=== PATIENT | female | born 1995 | race Hispanic/Latino ===

== ENCOUNTER 2017-08-07 16:29 | Inpatient (IN) | payer OTHER ==
[~2017-08-07 16:29] MED LIST: Bupivacaine 0.25% HCL 30 ML VIAL ONE
[2017-08-07 17:02] VITALS: BMI 35.8
[2017-08-07] MEDS ORDERED: Labetalol HCl 100 MG/20 ML VIAL ONE (18:10)
--- NOTE | 2017-08-07 18:18 | PDOC.LDHP ---
Labor and Delivery H&P Chief complaint: other (@ term, elevated bp's sent from clinic) HPI: 22 yo @ 37.1 by 1st tri us with complicated by gestational htn presents after being sent from clinic for elevated BP. She denies being on any medications for gestational htn. Pt reports headache, no vision changes. Denies cp, sob, RUQ pain. Denies loss of vaginal fluid, painful contractions. Pt was late to care started with clinic care at 35 weeks gestation. Current gestational age (weeks): 37 Due date: 09/06/17 Dating criteria: last menstrual period, first trimester ultrasound Grav: 4 Para: 3 OB History Details: Late to care gestational htn @ 37.1 A+, RPR, rubella neg, HIV neg, HpBsAg neg, GBS neg, UDS neg Current complications: preeclampsia with severe features Abnormal US findings: No Past Medical History: None Social history: none - Physical Exam General: NAD Heart: RRR Lungs: nonlabored breathing Abdomen: NTTP Extremeties: trace edema FHT: category 1, variability present [place] contractions every: absent - Vaginal Exam cm dilated: 1 Effacement: 75% Station: -3 - OB Labs Blood type: A RH: positive HIV: negative RPR: negative HEPSAg: negative GBS: negative Urine drug screen: negative - Assessment L&D Assessment: medically indicated induction - Plan Plan: admit to L&D, cervical ripening, labor augmentation if indicated, magnesium for neuroprotection, magnesium for seizure prophylaxis -: preeclampsia w/ severe mag for seizure prophylaxis cbc, cmp, Hgb A1c, urine protein/creatinine ratio foster 4, cytotec induction mag check q4hr, dtr q1hr lr @125 will monitor <Ray Santana - Last Filed: 08/07/17 18:12> <Sandra Rodrigez - Last Filed: 08/08/17 00:39> Allergies/Adverse Reactions: Allergies Allergy/AdvReac Type Severity Reaction Status Date / Time No Known Allergies Allergy Verified 07/12/17 22:57 Attending Addendum - Attending Addendum I personally evaluated the patient and discussed the management with Dr. Santana I agree with the History, Examination, Assessment and Plan documented above with any addition or exceptions noted below. 22 yo female at 37.1 wks by "reported" 1st trimester sono at [facility] sent for IOL. 1. sIUP: IOB labs reviewed and performed at hospital. Limited anatomy reviewed from previous hospital stay. Reports anatomy survey at [facility]. Received Flu and Tdap this . Did not perform 1 hour gtt. All fasting blood glucose has been WNL. Vertex and confirmed by sono. EFW = 7.5 lbs. FHT cat 1. GBS negative. No prior GC/CT testing -- ordered this stay and results pending. 2. Incomplete care: Will request records from [facility] and [facility] in AM. 3. Preeclampsia with severe features: Criteria by severe range pressure x2 on bed rest with persistent DUNCAN despite Tylenol. Labs WNL. No evidence of proteinuria. Previously dx with gHTN. BPP from earlier today 05/27. Will start mag. Fsoter of 4 and contractions irregular. Will start with miso for cervical ripening. 4. Hx of marijuana use: UDS negative x3. 5. Hx of macrosomic infant: Sono at 33.4 wks 81%tile. Sono consistent with previous dating. 6. Rubella nonimmune: Needs MMR pp. Proceed with admission. Start mag. BP severe range treated x1. WillMD <Sandra Rodrigez - Last Filed: 08/08/17 00:39>
[2017-08-07] MEDS ORDERED: LR / Pitocin 40 units/1000 ml 1,000 ML IV PRN (19:01)
[2017-08-07] MEDS ORDERED: Promethazine HCl 25 MG/ML VIAL IM PRN (19:01)
[2017-08-07] MEDS ORDERED: Lidocaine 1% (PF) 30 ML VIAL SC PRN (19:01)
[2017-08-07] MEDS ORDERED: Calcium Gluc 4.6 MEQ/10 ML (100 MG/ML) SLOW IVP PRN ×2 (19:01)
[2017-08-07] MEDS ORDERED: Magnesium Sulfate 20 GM/WATER 500 ML BAG IVPB SCH (19:01)
[2017-08-07] MEDS ORDERED: Labetalol HCl 100 MG/20 ML VIAL SLOW IVP PRN (19:01)
[2017-08-07] MEDS ORDERED: Ondansetron HCl/PF 4 MG/2 ML Vial IVP PRN (19:01)
[2017-08-07 19:09] LABS: Hematocrit 33.6 % (36.0-47.0); Mean Platelet Volume 7.6 fL (7.4-10.4); Red Blood Cell (RBC) Count 3.88 mill/uL (4.20-5.40); White Blood Cell (WBC) Count 10.8 thou/uL (4.8-10.8)
[2017-08-07 19:20] LABS: ALT (SGPT) 14 U/L (8-55); AST (SGOT) 15 U/L (5-34); Alkaline Phosphatase 208 U/L (40-150); Anion Gap 14 mmol/L (10-20); BUN (Urea Nitrogen) 8 mg/dL (7.0-18.7); Bilirubin, Total 0.3 mg/dL (0.2-1.2); Calc. Creatinine Clearance 234 mL/min (70-130); Carbon Dioxide 21 mmol/L (22-29); Chloride 105 mmol/L (98-107); Estimated GFR-MDRD Greater than 90; Globulin 3.6 g/dL (2.4-3.5); Protein, Total 6.9 g/dL (6.0-8.3)
[2017-08-07 19:23] LABS: Hemoglobin A1c 5.4 % (4.0-6.0)
[2017-08-07] MEDS: Lactated Ringer's 1,000 ML IV SCH (19:25)
[2017-08-07] MEDS ORDERED: Acetaminophen 325 MG TAB PO PRN (19:44)
[2017-08-07] MEDS: Magnesium Sulfate 20 gm/500 ml 20 GM/500 ML BAG IVPB SCH (19:52)
--- NOTE | 2017-08-07 20:53 | ULT ---
ULTRASOUND BIOPHYSICAL PROFILE WITH PROFILE: HISTORY: Preeclampsia. FINDINGS: A single live intrauterine gestation is seen with a heart rate of 135 beats per minute. ROGERS m easures 12.2 cm. The placenta is posteriorly located without evidence of placenta previa. po sition is vertex. OB BIOPHYSICAL PROFILE: TONE: 2 BREATHIN MOVEMENTS: 2 AMNIOTIC FLUID: 2 IMPRESSION: Ultrasound biophysical profile score is 8/8. POS: [facility]
[2017-08-07] MEDS ORDERED: Misoprostol 100 MCG TAB VAG SCH (21:00)
[2017-08-07] MEDS: LR 500 ML/Oxytocin 10 units 500 ML IV SCH (22:27)
--- NOTE | 2017-08-07 22:59 | PDOC.LDPN ---
Labor & Delivery Progress Note - Subjective Subjective: comfortable, painful contractions - Objective Vital signs reviewed and normal: yes General: NAD, breathing through contractions Uterine fundus: non tender FHT: category 1, variability present [place] contractions every: 4-6 min - Assessment (1) Pre-eclampsia, severe Code(s): O14.10 - SEVERE PRE-ECLAMPSIA, UNSPECIFIED TRIMESTER Current Visit: Yes Status: Acute Comment: 22yo @ 37.1 by 1st trimester US Continue Mg Continue Pitocin Epidural for pain control Next cervical check at 0200 Next Mg check at 0300 -Patient is not hyperreflexic, does complain of a headache, no peripheral edema , no RUQ pain Plan: continue plan of care, pitocin for augmentation <Nikolas Jasso - Last Filed: 08/07/17 22:57> Attending Addendum - Attending Addendum I personally evaluated the patient and discussed the management with Dr. Jasso I agree with the History, Examination, Assessment and Plan documented above with any addition or exceptions noted below. 22 yo female at 37.1 wks by "reported" 1st trimester sono at [facility] sent for IOL. 1. sIUP: IOB labs reviewed and performed at hospital. Limited anatomy reviewed from previous hospital stay. Reports anatomy survey at [facility]. Received Flu and Tdap this . Did not perform 1 hour gtt. All fasting blood glucose has been WNL. Vertex and confirmed by sono. EFW = 7.5 lbs. FHT cat 1. GBS negative. No prior GC/CT testing -- ordered this stay and results pending. 2. Incomplete care: Will request records from [facility] and [facility] in AM. 3. Preeclampsia with severe features: Criteria by severe range pressure x2 on bed rest with persistent DUNCAN despite Tylenol. Labs WNL. No evidence of proteinuria. Previously dx with gHTN. BPP from earlier today 05/27. On mag for seizure ppx. Initially unfavorable cervix but once transferred to room now with favorable cervix, will proceed with pitocin. 4. Hx of marijuana use: UDS negative x3. 5. Hx of macrosomic infant: Sono at 33.4 wks 81%tile. Sono consistent with previous dating. 6. Rubella nonimmune: Needs MMR pp. Continue mag. BP stable and normotensive. Still with headache. Will increase dose of Tylenol. Continue pit. Repeat SVE prn and in 4 hours. Will consider AROM at that time. Considering Epidural for pain control. Zuleyma <Sandra Rodrigez - Last Filed: 08/08/17 00:43>
[2017-08-08] MEDS ORDERED: Acetaminophen 325 MG TAB PO SCH (00:01)
[2017-08-08] MEDS ORDERED: Naloxone HCl 0.4 mg/ml Vial IVP PRN ×2 (00:05)
[2017-08-08] MEDS ORDERED: Ondansetron HCl/PF 4 MG/2 ML Vial IVP PRN (00:05)
[2017-08-08] MEDS ORDERED: Eucerin (Mineral Oil/Petrolatum,White) 30 gm Jar TOP PRN (00:05)
[2017-08-08] MEDS ORDERED: Acetaminophen 325 MG TAB PO PRN (00:05)
[2017-08-08] MEDS ORDERED: ePHEDrine/0.9% NaCl/PF SYRINGE 50 mg/10 ml SLOW IVP PRN (00:05)
[2017-08-08] MEDS ORDERED: Lactated Ringer's 500 ML IV PRN (00:05)
[2017-08-08] MEDS ORDERED: diphenhydrAMINE 50 MG/ML VIAL IVP PRN (00:05)
[2017-08-08] MEDS ORDERED: Promethazine HCl 25 MG/ML VIAL IM PRN (00:05)
[2017-08-08] MEDS ORDERED: Communication Order-Pharmacy FS SCH (00:15)
[2017-08-08] MEDS ORDERED: Fentanyl 4mcg/Marcaine 0.1% Cassette 100 ML EPIDURAL SCH (00:15)
--- NOTE | 2017-08-08 02:04 | PDOC.LDPN ---
Addendum entered and electronically signed by Nikolas Jasso MD 08/08/17 02: 05: Patient's urine output is 150ml/hr Original Note: Labor & Delivery Progress Note - Subjective Subjective: painful contractions - Objective Vital signs reviewed and normal: yes General: NAD Uterine fundus: non tender Dilation: 5cm Effacement: 90% Station: -1 FHT: category 1 [place] contractions every: 4-6 min - Assessment (1) Pre-eclampsia, severe Code(s): O14.10 - SEVERE PRE-ECLAMPSIA, UNSPECIFIED TRIMESTER Current Visit: Yes Status: Acute Comment: 22yo @ 37.1 by 1st trimester US Continue Mg Continue Pitocin Epidural for pain control / @ 0200 -DTR 2+ does complain of a headache, no peripheral edema, no RUQ pain Plan: continue plan of care, pitocin for augmentation <Nikolas Jasso - Last Filed: 08/08/17 02:02> Attending Addendum - Attending Addendum I personally evaluated the patient and discussed the management with Dr. Jasso I agree with the History, Examination, Assessment and Plan documented above with any addition or exceptions noted below. 22 yo female at 37.2 wks by "reported" 1st trimester sono at [facility] sent for IOL. 1. sIUP: IOB labs reviewed and performed at hospital. Limited anatomy reviewed from previous hospital stay. Reports anatomy survey at [facility]. Received Flu and Tdap this . Did not perform 1 hour gtt. All fasting blood glucose has been WNL. Vertex and confirmed by sono. EFW = 7.5 lbs. FHT cat 1. GBS negative. No prior GC/CT testing -- ordered this stay and results pending. 2. Incomplete care: Will request records from [facility] and [facility] in AM. 3. Preeclampsia with severe features: Criteria by severe range pressure x2 on bed rest with persistent DUNCAN despite Tylenol. Labs WNL. No evidence of proteinuria. Previously dx with gHTN. BPP from earlier today 05/27. On mag for seizure ppx. On pitocin. 4. Hx of marijuana use: UDS negative x3. 5. Hx of macrosomic infant: Sono at 33.4 wks 81%tile. Sono consistent with previous dating. 6. Rubella nonimmune: Needs MMR pp. Continue mag. Pitocin for augmentation. Will AROM and place IUPC. Headache improved. BP stable. Zuleyma <Sandra Rodrigez - Last Filed: 08/08/17 09:11>
--- NOTE | 2017-08-08 02:50 | PDOC.EVN ---
Event Note - Event Note Event Note: AROM @ 0245 Clear fluid present IUPC placed. <Nikolas Jasso - Last Filed: 08/08/17 02:49> Attending Addendum - Attending Addendum I personally evaluated the patient and discussed the management with Dr. Jasso I agree with the History, Examination, Assessment and Plan documented above with any addition or exceptions noted below. WillMD <Sandra Rodrigez - Last Filed: 08/08/17 09:12>
[2017-08-08] MEDS ORDERED: Misoprostol 200 MCG TAB ONE (05:07)
--- NOTE | 2017-08-08 05:50 | PDOC.PP ---
Post Progress Note Post Day #: 0 Weight Weight 88.904 kg Last BP 148/86 - Physical Examination General: NAD Cardiovascular: no m/r/g, RRR Respiratory: clear to ausculation bilateral Abdominal: + bowel sounds, lochia, appropriately TTP Extremities: negative homans (B) Skin: no rash Neurological: no gross focal deficits Psychiatric: normal affect Result Diagrams: 08/07/17 17:30 08/07/17 17:30 Additional Labs: Post Labs Hep Bs Antigen Non-Reactive S/CO (NonReactive) 08/07/17 17:30 (1) Pre-eclampsia, severe Code(s): O14.10 - SEVERE PRE-ECLAMPSIA, UNSPECIFIED TRIMESTER Status: Acute Comment: 22yo @ 37.2 by 1st trimester US delivered via TAGA male APGARs 9 & 9 @ 04:56 on 08/08/17 Continue Mg -More reflexive than on previous exams. -Complains of worsening headaches. -Having BPs with systolic as high as 150s, will continue to monitor -no peripheral edema, no RUQ pain -Will check Mg level <Nikolas Jasso - Last Filed: 08/08/17 05:48> Vital Signs (12 hours) Temp Pulse Resp BP 08/08/17 09:14 100 08/08/17 07:42 98.3 F 100 18 134/93 H Weight Weight 88.904 kg Result Diagrams: 08/07/17 17:30 08/07/17 17:30 Additional Labs: Post Labs Hep Bs Antigen Non-Reactive S/CO (NonReactive) 08/07/17 17:30 <Sandra Rodrigez - Last Filed: 08/08/17 09:39> Attending Addendum - Attending Addendum I personally evaluated the patient and discussed the management with Dr. Jasso I agree with the History, Examination, Assessment and Plan documented above with any addition or exceptions noted below. 22 yo female s/p at 37.2 wks on 08/08/17. 1. PPD#0: Follow up on medical records. Continue routine pp care. Discuss contraception. Breast feeding. Lochia appropriate. 2. Incomplete care: Will request records from [facility] and [facility] in AM. 3. Preeclampsia with severe features: Criteria by severe range pressure x2 ( treated) on bed rest with persistent DUNCAN despite Tylenol. Labs WNL. No evidence of proteinuria. Previously dx with gHTN. On mag for seizure ppx. Low risk for seizure will allow for full liquid diet. NO NSAIDS! UOP 400 to 500 ml/hr. 4. Hx of marijuana use: UDS negative x3. 5. Rubella nonimmune: Needs MMR pp. Continue mag for at least 24 hours. BP stable. Zuleyma <Sandra Rodrigez - Last Filed: 08/08/17 09:39>
[2017-08-08] MEDS ORDERED: HYDROcodone/Acetaminophen 5/325 mg Tablet PO SCH (06:35)
--- NOTE | 2017-08-08 06:41 | DN-2 ---
DATE OF DELIVERY: 08/08/2017 DELIVERING PHYSICIAN: Meghann Abebe D.O., Lazara Gage M.D. ATTENDING PHYSICIAN: Dr. Sandra Rodrigez PROCEDURE: Spontaneous vaginal delivery. ANESTHESIA: Epidural. ESTIMATED BLOOD LOSS: 350 mL. POSTOPERATIVE DIAGNOSES: 1. Term intrauterine in labor. 2. Preeclampsia with severe features. 3. Incomplete care. 4. History of gestational hypertension. 5. History of macrosomia. POSTOPERATIVE DIAGNOSES: 1. Term intrauterine , delivered. 2. Preeclampsia with severe features. 3. Incomplete care. 4. History of gestational hypertension. 5. History of macrosomia. INDICATIONS: A 22-year-old female G4, P3 presented for medical induction of labor due to preeclampsia with severe features. DELIVERY NOTE: This is a 22-year-old female, G4, P3 now 4 at 37 and 2 weeks who delivered a viable male at 0456. Although patient was on Mg for Preeclampsia with severe features and IV labetalol prn for elevated pressures, antepartum course was quite uneventful. Following antepartum course, a vigorous male was delivered over an intact perineum in OA position. Anterior shoulder and then remainder of body was delivered. No nuchal cord. The head was held down and mouth and nares were bulb suctioned. was placed on mom for skin to skin and delayed cord clamping for at least 1 minute was performed. Cord was clamped and cut and cord blood collected. Placenta delivered intact with a 3-vessel cord noted. Fundal massage was performed and the fundus was initially not firm. Cytotec was given and bimanual massage was performed and found to have a firm uterus. The cervix and vagina were inspected and found to be free of lacerations. Infant stayed with mom for skin to skin and . Apgars were 9 and 9 at 1 and 5 minutes, respectively. The patient tolerated delivery well and went to after routine recovery/care. Dr. Rodrigez was present for the entire delivery. [facility]
[2017-08-08] MEDS ORDERED: Bisacodyl 10 MG SUPP PR PRN (08:35)
[2017-08-08] MEDS ORDERED: LR / Pitocin 40 units/1000 ml 1,000 ML IV SCH (08:35)
[2017-08-08] MEDS ORDERED: Lanolin Ointment 7 GM TUBE TOP PRN (08:35)
[2017-08-08] MEDS ORDERED: Milk Of Magnesia 30 ML UDCUP PO PRN (08:35)
--- NOTE | 2017-08-08 08:38 | PDOC.PP ---
Post Progress Note Post Day #: 1 PO intake tolerated: yes Flatus: no Ambulation: no Weight Weight 88.904 kg - Physical Examination General: NAD Cardiovascular: no m/r/g, RRR Respiratory: clear to ausculation bilateral Abdominal: + bowel sounds, lochia, no distention, appropriately TTP Extremities: negative homans (B) Neurological: no gross focal deficits Deviation from normal: PERRLA, EOMI, reflexes 1+ Psychiatric: normal affect Result Diagrams: 08/07/17 17:30 08/07/17 17:30 Additional Labs: Post Labs Hep Bs Antigen Non-Reactive S/CO (NonReactive) 08/07/17 17:30 (1) Pre-eclampsia Code(s): O14.90 - UNSPECIFIED PRE-ECLAMPSIA, UNSPECIFIED TRIMESTER Status: Acute (2) Pre-eclampsia, severe Code(s): O14.10 - SEVERE PRE-ECLAMPSIA, UNSPECIFIED TRIMESTER Status: Acute - Assessment/Plan 22yo @ 37.2 by 1st trimester US delivered via TAGA male APGARs 9 & 9 @ 04:56 on 08/08/17 Continue Mg -Reflexes 1+ currently, will check mag level and continue q1hr DTR, mag check q4hr -Complains of worsening headaches, denies changes of vision, no RUQ pain, pt currently not hyperreflexive, will recheck in 4 hrs -Highest BP this AM 140s systolic, latest 119/70s william, will continue to monitor -maintaining UO approx 350mL/hr, continue to monitor is/os -Notify physician of worsening reflexes or bp > 160/110 <Ray Santana - Last Filed: 08/08/17 08:35> Vital Signs (12 hours) Temp Pulse Resp BP 08/08/17 12:00 98.5 F 100 20 08/08/17 09:14 100 08/08/17 07:42 98.3 F 100 18 134/93 H Weight Weight 88.904 kg Result Diagrams: 08/07/17 17:30 08/07/17 17:30 Additional Labs: Post Labs Hep Bs Antigen Non-Reactive S/CO (NonReactive) 08/07/17 17:30 <Guanako Sepulveda - Last Filed: 08/08/17 12:50> Attending Addendum - Attending Addendum I personally evaluated the patient and discussed the management with Dr. Santana. I agree with the History, Examination, Assessment and Plan documented above with any addition or exceptions noted below. Stable BP. No severe symptoms. + back pain, feels where epidural was. Will d/ w Anesthesia. 24h mag , then d/c. <Guanako Sepulveda - Last Filed: 08/08/17 12:50>
[2017-08-08] MEDS ORDERED: Ibuprofen 800 MG TAB PO SCH ×2 (09:00→14:00)
[2017-08-08] MEDS: Lactated Ringer's 1,000 ML IV SCH ×2 (09:14→11:12)
[2017-08-08] MEDS: Ferrous Sulfate 325 MG TAB PO SCH ×2 (09:14→18:39)
[2017-08-08] MEDS ORDERED: HYDROcodone/Acetaminophen 5/325 mg Tablet PO PRN (09:14)
[2017-08-08] MEDS: Prenatal Vitamin 1 TAB PO SCH (10:31)
[2017-08-08] MEDS: Docusate (Surfak) 240 MG CAP PO SCH (10:32)
[2017-08-08] MEDS: Docusate 100 MG CAP PO SCH ×2 (11:12→22:04)
[2017-08-08] MEDS ORDERED: Measles/Mumps/Rubella 10 MCG/0.5 ML VIAL SC ONE (12:00)
[2017-08-08] MEDS ORDERED: Adacel (T-DAP) 0.5 ML VIAL IM ONE (12:00)
--- NOTE | 2017-08-08 12:43 | PDOC.EVN ---
Event Note - Event Note Event Note: S: Patient only complaining of low back pain, worse on the L side and where epidural placed. Laying on her L side helps allieviate pain. However, pain is 10 /10 when on back. Moving legs worsen pain. No numbness, tingling, weakness. DUNCAN resolved. Denies any vision changes, CP, SOB, RUQ pain. Denies any urinary symptoms. O: VS: 121/75, HR 107, R 22, T - Gen: Appears uncomfortable, AOX4. Non-toxic appearing. CV: RRR, no murmurs. Resp: CTA bilaterally Abd: Soft, no RUQ pain, uterus below umbilicus. Neuro: Reflexes +2 symmetric. +5/5 strength LE symmetric bilaterally, Normal sensation LE bilaterally. Musculoskeletal: L sided pain around epidural site more on Left side. Equivocal CVA tenderness. A/P: 1) Pre-Eclampsia with severe features - On Mag. Doing well. Neuro check WNL. Urine Output 100-400cc/hr. BP controlled. Headache resolved. 2) IUP - delivered via 3) LBP - Likely 2/2 Epidural. Will consult Anesthesia to have them reassess patient. UA + Culture. 4) Gest HTN - Has been diet controlled. F/u with BP, which have been stable. 5) Continue routine PP w/ Mag. Discussed with Dr. Sepulveda who agrees with assessment and plan.
--- NOTE | 2017-08-08 13:02 | PDOC.FM ---
- Subjective Subjective: Pt doing well, c/o 8/10 back pain. Otherwise no headache/vision changes/BARTOLO/ RUQ pain. Intermittent lower abdominal cramping. - Objective MAR Reviewed: Yes Vital Signs & Weight: Vital Signs (12 hours) Temp Pulse Resp BP 08/08/17 12:00 98.5 F 100 20 08/08/17 09:14 100 08/08/17 07:42 98.3 F 100 18 134/93 H Weight Weight 88.904 kg Result Diagrams: 08/07/17 17:30 08/07/17 17:30 Phys Exam - Physical Examination Respiratory: no wheezing, no rales, clear to auscultation bilateral Cardiovascular: RRR, no significant murmur Gastrointestinal: soft (appropriately tender) Neurological: non-focal, moves all 4 limbs (no clonus, DTRs 1+ bilaterally) Psychiatric: normal affect, A&O x 3 Dx/Plan (1) Pre-eclampsia, severe Code(s): O14.10 - SEVERE PRE-ECLAMPSIA, UNSPECIFIED TRIMESTER Status: Acute - Plan Plan: Continue neurochecks, seizure precautions Mag x 24 hours Strict I&Os Mg level Antihypertensives if > 160/[address] Warren.
--- NOTE | 2017-08-08 13:21 | PDOC.EVN ---
Event Note - Event Note Event Note: Discussed case with Anesthesia. They examined the patient, and feel that it is likely musculoskeletal pain. Recommend to try Flexeril and Motrin. No evidence of hematoma or other complications at this time. <Bronwyn Valles - Last Filed: 08/08/17 13:20> Attending Addendum - Attending Addendum I personally evaluated the patient and discussed the management with Dr. Valles. I agree with the History, Examination, Assessment and Plan documented above with any addition or exceptions noted below. <Guanako Sepulveda - Last Filed: 08/11/17 09:23>
[2017-08-08] MEDS: Morphine 2 MG/ML SYRINGE SLOW IVP PRN ×2 (13:29→17:50)
[2017-08-08] MEDS ORDERED: Cyclobenzaprine 10 MG TAB PO SCH (13:30)
[2017-08-08 14:19] LABS: Bilirubin Negative (Negative); Blood, Urine Trace (Negative); Glucose, Urine (Dipstick) Negative (Negative); Ketone, Urine Negative (Negative); Nitrite Negative (Negative); Protein, Urine (Dipstick) Negative (Neg-Trace); Urobilinogen 0.2 mg/dL (0.2-1.0)
[2017-08-08 14:24] LABS: Bacteria/HPF None Seen HPF (None Seen); Hyaline Casts/LPF 0-3 HYALINE CAST LPF (0-3 Hyaline); Squamous Epithelial None Seen HPF (0-3); WBC/HPF 0-3 HPF (0-3)
[2017-08-08] MEDS: Magnesium Sulfate 20 gm/500 ml 20 GM/500 ML BAG IVPB SCH (14:53)
--- NOTE | 2017-08-08 16:16 | PDOC.EVN ---
Event Note - Event Note Event Note: S: Patient doing well. DUNCAN still resolved. Still complaining of LBP, but improved with Flexeril. Denies any vision changes, BP, SOB, RUQ pain, leg pain or swelling. + Flatus O: VS: 145/88, T- 98.5, HR 95, R 18 Gen: AOx4. In no acute distress. Appears much more comfortable. CV: RRR. No murmurs Resp: CTA bilaterally Abd: Appropriately TTP with fundus firm and below umbilicus. Neuro: +2 reflexes symmetric bilaterally MS: +5/5 strength LE. Errector spinae hypertonicity. Urine Output: 400cc/hr A/P: 1) Pre-eclampsia with severe features - Continue Mag x24hrs PP. Continue Q4hr Mag checks. Currently asymptomatic other than LBP. BP well controlled. 2) TIUP s/p - Continue Routine PP Care with Pre-eclampsia. <Bronwyn Valles - Last Filed: 08/08/17 16:47> Attending Addendum - Attending Addendum I personally evaluated the patient and discussed the management with Dr. Valles. I agree with and repeated the History, Examination, Assessment and Plan documented above with any addition or exceptions noted below. <Guanako Sepulveda - Last Filed: 08/11/17 09:33>
[2017-08-08] MEDS: HYDROcodone/Acetaminophen 5/325 mg Tablet PO PRN (20:22)
--- NOTE | 2017-08-08 21:40 | PDOC.EVN ---
Event Note - Event Note Event Note: S: Patient doing well. No longer complaining of Headache. Low Back pain treated with Flexeril. Denies vision changes, RUQ pain, SOB, lower extremity swelling. She states she is tolerating PO, having flatus, and was up walking around earlier. She is just wanting another dose of flexeril. O: VS: WNL Gen: AOx4. In no acute distress. Appears much more comfortable. CV: RRR. No murmurs Resp: CTA bilaterally Abd: Appropriately TTP with fundus firm and below umbilicus. Neuro: +2 reflexes symmetric bilaterally MS: +5/5 strength LE. Errector spinae hypertonicity. Urine Output: 400cc/hr A/P: 1) Pre-eclampsia with severe features - Continue Mag x24hrs PP. Continue Q4hr Mag checks. Currently asymptomatic other than LBP. BP well controlled. 2) TIUP s/p - Continue Routine PP Care with Pre-eclampsia.
[2017-08-08] MEDS: Cyclobenzaprine 10 MG TAB PO PRN (22:04)
[2017-08-09] MEDS: Lactated Ringer's 1,000 ML IV SCH (00:54)
[2017-08-09] MEDS: Magnesium Sulfate 20 gm/500 ml 20 GM/500 ML BAG IVPB SCH (00:55)
--- NOTE | 2017-08-09 01:19 | PDOC.EVN ---
Event Note - Event Note Event Note: S: Patient doing well. She states that she gets a headache when she wakes up. Low Back pain improved with Flexeril. Denies vision changes, RUQ pain, SOB, lower extremity swelling. She states she is tolerating PO and having flatus. O: VS: BP running 150s/80s asymptomatic otherwise WNL Gen: AOx4. In no acute distress. Appears much more comfortable. CV: RRR. No murmurs Resp: CTA bilaterally Abd: Appropriately TTP with fundus firm and below umbilicus. Neuro: +2 reflexes symmetric bilaterally MS: +5/5 strength LE. Errector spinae hypertonicity. Urine Output: 200cc/hr A/P: 1) Pre-eclampsia with severe features - Continue Mag x24hrs PP. Continue Q4hr Mag checks. Currently asymptomatic other than LBP. PRNs available for elevated BP 2) TIUP s/p - Continue Routine PP Care with Pre-eclampsia.
--- NOTE | 2017-08-09 04:57 | PDOC.EVN ---
Event Note - Event Note Event Note: S: Patient doing well. She states that she gets a headache when she wakes up, she is encouraged to ask for Tylenol if needed. She is breast feeding her during the interview. Low Back pain improved with Flexeril. Denies vision changes, RUQ pain, SOB, lower extremity swelling. She states she is tolerating PO and having flatus. O: VS: WNL Gen: AOx4. In no acute distress. Appears much more comfortable. CV: RRR. No murmurs Resp: CTA bilaterally Abd: Appropriately TTP with fundus firm and below umbilicus. Neuro: +2 reflexes symmetric bilaterally MS: +5/5 strength LE. Urine Output: 200cc/hr A/P: 1) Pre-eclampsia with severe features - Continue Mag x24hrs PP. Continue Q4hr Mag checks. Currently asymptomatic other than LBP. PRNs available for elevated BP 2) TIUP s/p - Continue Routine PP Care with Pre-eclampsia.
[2017-08-09] MEDS: HYDROcodone/Acetaminophen 5/325 mg Tablet PO PRN ×2 (05:07→09:59)
[2017-08-09 06:48] LABS: #Basophils 0.1 thou/uL (0.0-0.2); #Eosinphils 0.2 thou/uL (0.0-0.7); #Lymphocytes 3.9 thou/uL (1.20-3.40); #Monocytes 0.9 thou/uL (0.11-0.59); #Neutrophils 6.1 thou/uL (1.40-6.50); %Basophils 0.9 % (0.0-1.0); %Eosinophils 1.6 % (0.0-10.0); %Lymphocytes 35.1 % (21.0-51.0); %Monocytes 7.9 % (0.0-10.0); Hematocrit 31.2 % (36.0-47.0); Mean Platelet Volume 6.9 fL (7.4-10.4); Red Blood Cell (RBC) Count 3.58 mill/uL (4.20-5.40); White Blood Cell (WBC) Count 11.2 thou/uL (4.8-10.8)
[2017-08-09] MEDS: Cyclobenzaprine 10 MG TAB PO PRN ×3 (07:01→21:35)
--- NOTE | 2017-08-09 09:08 | PDOC.PP ---
Post Progress Note Post Day #: 1 -: Patient reports DUNCAN that worsens when standing or sitting upright. PO intake tolerated: yes Flatus: yes Ambulation: no Vital Signs (12 hours) Temp Pulse Resp 08/09/17 03:48 98.5 F 100 20 08/09/17 00:00 98.5 F 100 20 Weight Weight 88.904 kg - Physical Examination General: NAD Cardiovascular: no m/r/g, RRR Respiratory: clear to ausculation bilateral Abdominal: + bowel sounds, lochia (wnl), no distention Fundus firm & at: 3cm below umbilicus Extremities: negative homans (B) Skin: no rash Neurological: no gross focal deficits Psychiatric: A&Ox3 Result Diagrams: 08/09/17 06:35 08/07/17 17:30 Additional Labs: Post Labs Hep Bs Antigen Non-Reactive S/CO (NonReactive) 08/07/17 17:30 (1) Vaginal delivery Code(s): O80 - ENCOUNTER FOR FULL-TERM UNCOMPLICATED DELIVERY Status: Acute Comment: 25 yo -->4 delivered a ANGIE Manuel at 0456 on 08/08 via at 37.2, induction due to pre-eclampsia with severe features. - Tolerating oral intake, normal lochia, voiding and passing flatus - Has not been able to ambulate due to spinal DUNCAN - Mg was d/c'd at 0500 today, will monitor for 24hrs - going well, no concerns (2) spinal headache Code(s): O89.4 - SPINAL AND EPIDUR ANESTHESIA-INDUCED HDACHE DURING THE PUERP Status: Acute Comment: - Scheduled Tylenol and motrin for pain relief - Encouraged increased fluid intake and caffiene - Anesthesia to come see her this am. (3) Pre-eclampsia, severe Code(s): O14.10 - SEVERE PRE-ECLAMPSIA, UNSPECIFIED TRIMESTER Status: Acute Comment: 22yo @ 37.2 by 1st trimester u/s delivered via ANGIE male, APGARS 9 & 9 @ 0456 on 08/08/17 - Mg discontinued at 0500 this am. - Patient with pressures in the 130's/80's. - Will monitor patient at least 24hours post discontinuation of Mg. <Meghann Abebe - Last Filed: 08/09/17 09:06> Vital Signs (12 hours) Temp Pulse Resp 08/09/17 03:48 98.5 F 100 20 08/09/17 00:00 98.5 F 100 20 Weight Weight 88.904 kg Result Diagrams: 08/09/17 06:35 08/07/17 17:30 Additional Labs: Post Labs Hep Bs Antigen Non-Reactive S/CO (NonReactive) 08/07/17 17:30 <Connor Garza - Last Filed: 08/09/17 10:07> Attending Addendum - Attending Addendum I personally evaluated the patient and discussed the management with Dr. Abebe. I agree with the History, Examination, Assessment and Plan documented above with any addition or exceptions noted below. Recovering well but may ahve spinal headache. Appreciate Anesthesia's care. <Connor Garza - Last Filed: 08/09/17 10:07>
[2017-08-09] MEDS ORDERED: Preparation H Ointment 28 GM TUBE TOP PRN (09:21)
[2017-08-09] MEDS: Docusate 100 MG CAP PO SCH ×2 (09:25→21:35)
[2017-08-09] MEDS: Ferrous Sulfate 325 MG TAB PO SCH ×2 (09:38→17:40)
[2017-08-09] MEDS: Prenatal Vitamin 1 TAB PO SCH (09:39)
[2017-08-09] MEDS: Docusate (Surfak) 240 MG CAP PO SCH (09:39)
[2017-08-09] MEDS: Ibuprofen 800 MG TAB PO SCH ×2 (14:00→21:35)
[2017-08-09] MEDS: Acetaminophen 325 MG TAB PO SCH ×3 (14:11→21:34)
[2017-08-10] MEDS: LR 500 ML/Oxytocin 10 units 500 ML IV SCH ×3 (02:12→17:20)
[2017-08-10] MEDS: Acetaminophen 325 MG TAB PO SCH ×5 (02:13→17:25)
[2017-08-10] MEDS: Ibuprofen 800 MG TAB PO SCH ×2 (06:06→13:30)
--- NOTE | 2017-08-10 07:55 | PDOC.PP ---
Post Progress Note Post Day #: 2 -: Patient reports DUNCAN improvement. Was able to get up and walk yesterday. PO intake tolerated: yes Flatus: yes Ambulation: yes Vital Signs (12 hours) Temp Pulse Resp BP 08/10/17 06:08 109 H 16 134/80 08/10/17 02:00 102 H 137/77 08/09/17 20:00 98.7 F 112 H 20 154/87 H Weight Weight 88.904 kg - Physical Examination General: NAD Cardiovascular: no m/r/g, RRR Respiratory: clear to ausculation bilateral Abdominal: + bowel sounds, lochia, no distention Fundus firm & at: 3cm below umbilicus Extremities: negative homans (B) Skin: no rash Neurological: no gross focal deficits Psychiatric: normal affect Result Diagrams: 08/09/17 06:35 08/07/17 17:30 Additional Labs: Post Labs Hep Bs Antigen Non-Reactive S/CO (NonReactive) 08/07/17 17:30 (1) Vaginal delivery Code(s): O80 - ENCOUNTER FOR FULL-TERM UNCOMPLICATED DELIVERY Status: Acute Comment: 25 yo -->4 delivered a ANGIE Manuel at 0456 on 08/08 via at 37.2, induction due to pre-eclampsia with severe features. - Tolerating oral intake, normal lochia, voiding and passing flatus - Able to ambulate yesterday - going well, no concerns (2) spinal headache Code(s): O89.4 - SPINAL AND EPIDUR ANESTHESIA-INDUCED HDACHE DURING THE PUERP Status: Acute Comment: - Improved from yesterday - Scheduled Tylenol and motrin for pain relief - Encouraged increased fluid intake and caffiene (3) Pre-eclampsia, severe Code(s): O14.10 - SEVERE PRE-ECLAMPSIA, UNSPECIFIED TRIMESTER Status: Acute Comment: 22yo @ 37.2 by 1st trimester u/s delivered via TAGA male, APGARS 9 & 9 @ 0456 on 08/08/17 - Mg discontinued at 0500 this on 08/09/17. - Patient with pressures in the 130's/80's. Isolated 150's SBP <Meghann Abebe - Last Filed: 08/10/17 09:35> Vital Signs (12 hours) Pulse Resp BP 10/22/17 06:08 109 H 16 134/80 08/10/17 02:00 102 H 137/77 Weight Weight 88.904 kg Result Diagrams: 08/09/17 06:35 08/07/17 17:30 Additional Labs: Post Labs Hep Bs Antigen Non-Reactive S/CO (NonReactive) 08/07/17 17:30 <Connor Garza - Last Filed: 08/10/17 10:52> Attending Addendum - Attending Addendum I personally evaluated the patient and discussed the management with Dr. Abebe. I agree with the History, Examination, Assessment and Plan documented above with any addition or exceptions noted below. Stable for discharge. <Connor Garza - Last Filed: 08/10/17 10:52>
[2017-08-10] MEDS: Docusate 100 MG CAP PO SCH (09:05)
[2017-08-10] MEDS: Prenatal Vitamin 1 TAB PO SCH (09:05)
[2017-08-10] MEDS: Cyclobenzaprine 10 MG TAB PO PRN (09:05)
[2017-08-10] MEDS: Ferrous Sulfate 325 MG TAB PO SCH ×2 (09:05→17:25)
[2017-08-10] MEDS: Lactated Ringer's 1,000 ML IV SCH (11:07)
[2017-08-10] MEDS ORDERED: Measles/Mumps/Rubella 10 MCG/0.5 ML VIAL SC ONE (12:30)
[2017-08-10 17:19] VITALS: BP 137/92; TEMP 98
== END 2017-08-10 17:45 | disposition home or self-care (01) | DRG 775 ==
LOC: L&D/OP 16:29 → L&D 08-08 04:56 → UNDOADMIN 08-08 05:31 → L&D 08-08 05:31 → 3SW 08-09 07:46
PROVIDERS: ADMIT Student in an Organized Health Care Education/Training Program; ATTEND Student in an Organized Health Care Education/Training Program
PROC: 10E0XZZ Delivery of Products of Conception, External Approach (ICD-10-PCS; principal; 2017-08-08)
PROC: 3E0K7GC Introduction of Other Therapeutic Substance into Genitourinary Tract, Via Natural or Artificial Opening (ICD-10-PCS; 2017-08-08)
PROC: 3E0P7VZ Introduction of Hormone into Female Reproductive, Via Natural or Artificial Opening (ICD-10-PCS; 2017-08-08)
PROC: 10907ZC Drainage of Amniotic Fluid, Therapeutic from Products of Conception, Via Natural or Artificial Opening (ICD-10-PCS; 2017-08-08)
PROC: 10H07YZ Insertion of Other Device into Products of Conception, Via Natural or Artificial Opening (ICD-10-PCS; 2017-08-08)
DX: O14.14 Severe pre-eclampsia complicating childbirth (principal); O75.89 Other specified complications of labor and delivery; Z3A.37 37 weeks gestation of pregnancy; Z37.0 Single live birth; O89.4 Spinal and epidural anesthesia-induced headache during the puerperium
CPT/HCPCS: 36415; 76819; 80053; 81001; 81003; 82570; 83036; 83735; 84156; 84443; 84550; 85025; 85027; 86780; 87077; 87086; 87186; 87340; 87491; 87591; 88307; 90707; A4216; C1726; J0595; J2001; J2270; J3475; J7120; S0020

== ENCOUNTER 2017-08-11 16:43 | Inpatient (IN) | payer OTHER ==
[2017-08-11] MEDS ORDERED: Labetalol HCl 100 MG/20 ML VIAL ONE (17:10)
[2017-08-11 17:20] LABS: #Basophils 0.1 thou/uL (0.0-0.2); #Eosinphils 0.2 thou/uL (0.0-0.7); #Lymphocytes 2.7 thou/uL (1.20-3.40); #Monocytes 0.7 thou/uL (0.11-0.59); #Neutrophils 8.6 thou/uL (1.40-6.50); %Basophils 0.7 % (0.0-1.0); %Eosinophils 1.5 % (0.0-10.0); %Lymphocytes 22.1 % (21.0-51.0); %Monocytes 5.9 % (0.0-10.0); Hematocrit 30.7 % (36.0-47.0); Red Blood Cell (RBC) Count 3.59 mill/uL (4.20-5.40); White Blood Cell (WBC) Count 12.2 thou/uL (4.8-10.8)
[2017-08-11 17:26] LABS: ALT (SGPT) 26 U/L (8-55); AST (SGOT) 26 U/L (5-34); Alkaline Phosphatase 152 U/L (40-150); Anion Gap 13 mmol/L (10-20); BUN (Urea Nitrogen) 8 mg/dL (7.0-18.7); Bilirubin, Total 0.2 mg/dL (0.2-1.2); Calc. Creatinine Clearance 0 mL/min (70-130); Calcium 8.6 mg/dL (7.8-10.44); Carbon Dioxide 24 mmol/L (22-29); Chloride 105 mmol/L (98-107); Estimated GFR-MDRD Greater than 90; Globulin 3.5 g/dL (2.4-3.5); Magnesium 1.4 mg/dL (1.6-2.6); Protein, Total 6.6 g/dL (6.0-8.3); Uric Acid 4.8 mg/dL (2.6-6.0)
[2017-08-11 17:27] LABS: PTT 24.9 SEC (22.9-36.1); Prothrombin Time 12.2 SEC (12.0-14.7)
[2017-08-11 19:59] LABS: Bilirubin Negative (Negative); Blood, Urine Large (Negative); Glucose, Urine (Dipstick) Negative (Negative); Ketone, Urine Negative (Negative); Nitrite Negative (Negative); Protein, Urine (Dipstick) Negative (Neg-Trace)
[2017-08-11 20:14] LABS: Bacteria/HPF None Seen HPF (None Seen); Hyaline Casts/LPF 0-3 HYALINE CAST LPF (0-3 Hyaline); RBC/HPF 0-3 HPF (0-3); Squamous Epithelial 0-3 HPF (0-3)
[2017-08-11] MEDS ORDERED: diphenhydrAMINE 50 MG/ML VIAL ONE (20:41)
[2017-08-11] MEDS ORDERED: Metoclopramide HCl 10 MG/2 ML VIAL ONE (20:41)
[2017-08-11] MEDS ORDERED: Magnesium 2 GM/NS 0.9% 50 ML 2 GM in Premix Bag 1 BAG IVPB SCH (21:30)
[2017-08-11] MEDS ORDERED: Magnesium Sulfate 20 gm/500 ml 20 GM/500 ML BAG ONE (23:38)
[2017-08-11] MEDS: Magnesium Sulfate 20 gm/500 ml 20 GM/500 ML BAG IVPB SCH (23:50)
[2017-08-12] MEDS ORDERED: Labetalol HCl 100 MG/20 ML VIAL SLOW IVP SCH (01:54)
[2017-08-12] MEDS ORDERED: Ondansetron HCl/PF 4 MG/2 ML Vial IVP PRN (01:54)
[2017-08-12] MEDS ORDERED: Calcium Gluc 4.6 MEQ/10 ML (100 MG/ML) SLOW IVP PRN (01:54)
[2017-08-12] MEDS ORDERED: Ondansetron ODT 4 MG TAB PO PRN (01:54)
[2017-08-12] MEDS ORDERED: Calcium Carbonate 500 MG ChewTAB PO PRN (01:54)
[2017-08-12] MEDS ORDERED: Acetaminophen 650 MG Suppository PR PRN (01:54)
[2017-08-12] MEDS: Acetaminophen 325 MG TAB PO PRN ×2 (02:22→07:38)
--- NOTE | 2017-08-12 02:54 | PDOC.PP ---
Post Progress Note Post Day #: 3 Subjective: Pt doing well. Headache doing better. Denies any numbness or tingling. Denies any loss of sensation. Denies dizziness or blurred vision PO intake tolerated: yes - Physical Examination General: NAD Neurological: no gross focal deficits Deviation from normal: Strenght 5/5, No numbness or tingling. Cranial Nerves 2- 12 grossly intact. Psychiatric: A&Ox3 Result Diagrams: 08/11/17 16:57 08/11/17 16:57 (1) spinal headache Code(s): O89.4 - SPINAL AND EPIDUR ANESTHESIA-INDUCED HDACHE DURING THE PUERP Status: Acute Comment: Headache doing better, will continue to tx blood pressure and give mag and reasses (2) Pre-eclampsia, severe Code(s): O14.10 - SEVERE PRE-ECLAMPSIA, UNSPECIFIED TRIMESTER Status: Acute Comment: 22yo @ 37.2 by 1st trimester u/s delivered via TAGA male, APGARS 9 & 9 @ 0456 on 08/08/17 -continue mg -not hyperreflexive at this time -SBP 147/101 at this time. Will continue to tx and foolow -Headache is improving. Denies changes in vision, Will recheck in 4 hrs.
[2017-08-12] MEDS ORDERED: Lactated Ringer's 1,000 ML IV SCH (03:30)
[2017-08-12] MEDS ORDERED: Labetalol HCl 100 MG/20 ML VIAL SLOW IVP PRN (03:58)
--- NOTE | 2017-08-12 04:54 | HP ---
DATE OF ADMISSION: 08/11/2017 ATTENDING: Dr. Lilliana Brito RESIDENT: Dr. Rolando Paredes's H\T\P reviewed and case discussed. Pertinent portions of the history and physical were repeated by myself. I agree with the assessment and plan with the following addendum. Ms. Love is a pleasant 22-year-old female, G4, P4 who delivered a vigorous male on 08/08/2017 after induction for severe preeclampsia with severe features. She was on magnesium during the course of that delivery and was discharged home yesterday in good condition with controlled blood pressures. She returned to the ER tonight with elevated blood pressures and headache. She had a systolic BP in the ER greater than 160. Her most recent blood pressure was 148/97. She continues to have a headache. She will be started on magnesium for 24 hours and after briefly discussing with the laborist , may consider an MRI tomorrow for PRES syndrome; however, tonight we will give her a loading dose of magnesium and monitor her blood pressures closely. Some of the features of her headache are also more consistent with a spinal headache. She did have an epidural placed during her delivery and notes that her headache is almost entirely positional. We will consider discussing with anesthesia once her blood pressures are controlled and the patient is more stable to consider possible blood patch. In the meantime, we will continue to support the patient's efforts to breastfeed and carrillo with her infant while admitted to Labor and Delivery. CANDELARIA
--- NOTE | 2017-08-12 06:13 | HP-2 ---
LOCATION: [facility] CODE STATUS: Full. PRIMARY CARE PHYSICIAN: Dr. Abebe ATTENDING: Dr. Lilliana Brito RESIDENT: Rolando Paredes M.D., PGY-1 CHIEF COMPLAINT: Headache. HISTORY OF PRESENT ILLNESS: This is a 22-year-old female that is 3 days . At th at time, she was having a little bit of headache. She was sent home on a muscle relaxer and ibuprof en. She stated today that she could not sit up and nurse her baby. She had trouble getting up and folding clothes. She said headache was worse when she was up standing on her feet. She said the he adache starts in her neck and radiates to the back of her head. She says when she is up and the hea dache is at its worst pain, rates it at a 10. She says the only thing that helps relieve the headac he is when she lays down. She reported that a little while this morning she had blurry vision and then the reason she came to the ER is because the pain got worse and the headache and she started fe eling nauseous. She did have a history of preeclampsia with her recent and delivery, and she was given magnesium. She did have an epidural placed with this and she does report robles ving a little back pain today. PAST MEDICAL HISTORY: None except for the preeclampsia and current that she is for, in the that she just delivered. PAST SURGICAL HISTORY: None. ALLERGIES: No known drug allergies. MEDICATIONS: She was on ibuprofen and a muscle relaxer. FAMILY HISTORY: Dad with hypertension and mom is insignificant. SOCIAL HISTORY: No smoking, no alcohol use, no illicit drug use. REVIEW OF SYSTEMS: All review of systems not listed in the HPI are otherwise negative at this time. PHYSICAL EXAMINATION: VITAL SIGNS: Initially when she got to the ER her blood pressure was 160/111, blood pressure when w e saw her was 159/96, pulse of 111, respirations 22, temperature 97.8, pulse ox 99% on room air, cur rent weight is 83.9 kilograms. GENERAL: She is alert and oriented x3, well-developed, well-nourished, appropriately interactive. EYES: PERRLA. Conjunctivae within normal limits. ENT: Nasal mucosa within normal limits, oropharynx in normal limits. NECK: Supple, no lymphadenopathy, no thyromegaly. CARDIOVASCULAR: Regular rate and rhythm. No murmurs, no gallops. Radial pulses and pedal pulses a re palpated bilaterally. RESPIRATORY: Normal breathing effort, no retractions. Lungs are clear to auscultation bilaterally. No wheezes or crackles. SKIN: Warm and dry. No lesions noted. ABDOMEN: Soft, nontender to palpation. Bowel sounds are in all 4 quadrants. No masses or distenti on. EXTREMITIES: No clubbing, no edema noted. MUSCULOSKELETAL: Structure within normal, tone within normal. Muscle strength 5/5. Moves all extr emities bilaterally. NEUROLOGIC: No focal neuro deficit noted. PSYCHIATRIC: Appropriate. LABORATORY DATA: White blood cell count 12.3, hemoglobin 10.1, hematocrit 30.7, MCV is 138, potassi um 3.5, chloride 105, CO2 24, BUN 8, creatinine 0.54, glucose is 96, calcium is 8.6, total protein i s 6.6, albumin 3.1, alkaline phosphatase 152, AST 26, ALT 26, bilirubin 0.2. PT 12.2, INR 0.9, PTT 24.9. Phosphorus is 3.8, magnesium is 1.4. Uric acid is 4.8. UA; specific gravity 1.01, shows lar ge blood, shows trace of leukocyte esterase and shows white blood cells 7/10 and everything else in the UA is negative at this time. ASSESSMENT AND PLAN: 1. Preeclampsia with severe features. We will start her on IV magnesium and will continue to asses s every 4 hours for neuro checks to check for mag toxicity. We will start her on labetalol 20 IV fo r her elevated blood pressures from the hypertension. We will check a urine protein creatinine rati o as that has not been checked at this time. We will continue to assess her vital signs and continu e to assess her headache and continue to manage. 2. Headache. The headache is positional. It is relieved when she lays down. Plan as above per #1 . If headache does not improve with treatment of the preeclampsia maybe consider consulting Anesthe siology for a possible blood patch.
[2017-08-12 06:34] VITALS: BMI 33.8
--- NOTE | 2017-08-12 06:48 | PDOC.PP ---
Post Progress Note Post Day #: 4 Subjective: Pt is up holding her son. She is doing well. Says that her headache is the same as earlier in the evening. Yet says headache is much better from yesterday when she is admitted. Denies any numbness an tingling. Denies any trouble with vision. - Physical Examination General: NAD Cardiovascular: RRR Respiratory: clear to auscultation bilaterally Abdominal: + bowel sounds Neurological: no gross focal deficits Deviation from normal: Moves all extremities, No numbness or tingling, CN 2-12 grossly intact Psychiatric: A&Ox3, normal affect Result Diagrams: 08/11/17 16:57 08/11/17 16:57 (1) spinal headache Code(s): O89.4 - SPINAL AND EPIDUR ANESTHESIA-INDUCED HDACHE DURING THE PUERP Status: Acute Comment: Headache doing better, will continue to tx blood pressure and give mag and reasses (2) Pre-eclampsia, severe Code(s): O14.10 - SEVERE PRE-ECLAMPSIA, UNSPECIFIED TRIMESTER Status: Acute Comment: 22yo @ 37.2 by 1st trimester u/s delivered via TAGA male, APGARS 9 & 9 @ 0456 on 08/08/17 -continue mg -not hyperreflexive at this check -SBP 140/93 at this time. Will continue to tx and foolow -Headache is better than yesterady. Will consider consult to anesthesiology.
[2017-08-12] MEDS: Magnesium Sulfate 20 gm/500 ml 20 GM/500 ML BAG IVPB SCH (08:50)
--- NOTE | 2017-08-12 11:24 | PDOC.PP ---
Post Progress Note Post Day #: 4 Subjective: 22yo @ 37.2 by 1st trimester u/s delivered via TAGA male, APGARS 9 & 9 @ 0456 on 08/08/17, complains of a worsening headache since delivery. States it's worse sitting or standing and complains of nausea, photophobia, and phonophobia. Reports relief with laying flat. Tylenol did not help. PO intake tolerated: yes Flatus: yes Ambulation: yes Vital Signs (12 hours) Temp Pulse Resp 08/12/17 07:30 98.2 F 109 H 20 - Physical Examination Deviation from normal: pt in pain from headache Cardiovascular: no m/r/g, RRR Respiratory: clear to auscultation bilaterally, non-labored breathing Abdominal: + bowel sounds, no distention Skin: no rash Neurological: no gross focal deficits Deviation from normal: 2+ patellar and achilles reflexes Psychiatric: A&Ox3, normal affect Result Diagrams: 08/11/17 16:57 08/11/17 16:57 (1) spinal headache Code(s): O89.4 - SPINAL AND EPIDUR ANESTHESIA-INDUCED HDACHE DURING THE PUERP Status: Acute Comment: -not hyperreflexive at this check (0830) -SBP 120s/70s at this time. Will consider ccb upon discharge. Pt has labetalol prn for systolic >160. -Anesthesiology consulted with concern for spinal headache. Blood patch to be placed. (2) Pre-eclampsia, severe Code(s): O14.10 - SEVERE PRE-ECLAMPSIA, UNSPECIFIED TRIMESTER Status: Acute Comment: 22yo @ 37.2 by 1st trimester u/s delivered via TAGA male, APGARS 9 & 9 @ 0456 on 08/08/17 likely with a spinal headache vs preeclampsia with severe features. -not hyperreflexive at this check -SBP 122/89 at this time. Will consider ccb upon discharge. -Anesthesiology consulted with concern for spinal headache. Blood patch to be placed. -Pt given norco and tylenol for headache. (3) Hx of vaginal delivery Code(s): [id number] - Status: Acute Comment: see above. <Lori Daly - Last Filed: 08/12/17 11:23> Vital Signs (12 hours) Temp Pulse Resp BP 08/12/17 13:35 98.2 F 101 H 18 140/94 H 08/12/17 12:45 98.2 F 96 20 08/12/17 12:00 98.2 F 96 20 139/91 H 08/12/17 07:30 98.2 F 109 H 20 Result Diagrams: 08/11/17 16:57 08/11/17 16:57 <Sandra Rodrigez - Last Filed: 08/12/17 15:14> Attending Addendum - Attending Addendum I personally evaluated the patient and discussed the management with Dr. Fraser I agree with the History, Examination, Assessment and Plan documented above with any addition or exceptions noted below. 22 yo female s/p IOL for preeclampsia with severe features now on admitted for evaluation of severe/worsening DUNCAN. PPD#4. HD#1. Dx and admitted on 08/07 for preeclampsia with severe features. Placed on mag and continued for 24 hours after delivery. Patient met criteria by severe range BP and DUNCAN. At time of d/c BP improved to 130s. DUNCAN at discharge concerning for spinal DUNCAN. Anaesthesia consulted at that time. No need for blood patch at time of discharge but precautions addressed with anaesthesia. At home patient reports DUNCAN very positional. No other symptoms. Reports pain has been persistent 07/29. Worsens with sitting up right. PreE labs WNL. Uric acid less than 5.2. Does not seem to have worsening of preE. Will hold mag and have anaesthesia consulted for blood patch. Continue to monitor BP to see if responsive to pain. If anything patient may need CCB for BP control. Continue to monitor. ABrayMD <Sandra Rodrigez - Last Filed: 08/12/17 15:14>
[2017-08-12] MEDS: HYDROcodone/Acetaminophen 5/325 mg Tablet PO PRN ×2 (11:56→23:33)
--- NOTE | 2017-08-12 14:27 | PDOC.EVN ---
Event Note - Event Note Event Note: Went to re-evaluate patient s/p blood patch per anesthesia. States her headache is significantly improved. Denies any headache now, no visual changes, abdominal pain or LE edema. Only c/o slight pain where blood patch placed previously. BPs re-evaluated after pain control and remain 130-140/90-94. Will continue to monitor q1hr and determine if we will observe pt overnight or if pt is candidate for po antihypertensive meds. Discussed POC with pt and Dr. Rodrigez <Mishel Benavidez - Last Filed: 08/12/17 14:23> Attending Addendum - Attending Addendum I personally evaluated the patient and discussed the management with Dr. Benavidez I agree with the History, Examination, Assessment and Plan documented above with any addition or exceptions noted below. Patient reports DUNCAN resolved after blood patch. No other symptoms. Blood pressures mild range. Continue to monitor. Add CCB if persist 150's. Will likely monitor overnight. No NSAIDS for pain! ABrayMD <Sandar Rodrigez - Last Filed: 08/13/17 12:24>
[2017-08-12] MEDS ORDERED: Ibuprofen 800 MG TAB PO SCH (14:30)
[2017-08-12] MEDS ORDERED: NIFEdipine XL 30 MG TAB PO SCH (16:00)
[2017-08-12] MEDS: Ibuprofen 800 MG TAB PO SCH (21:32)
[2017-08-13] MEDS: HYDROcodone/Acetaminophen 5/325 mg Tablet PO PRN ×2 (04:54→08:48)
[2017-08-13] MEDS: Ibuprofen 800 MG TAB PO SCH (04:54)
--- NOTE | 2017-08-13 06:24 | PDOC.PP ---
Post Progress Note Post Day #: 5 Subjective: Denies headache this morning. Vitals stable. Still with blood pressures in the 150s systolic however. No complaints per pt. No acute events overnight. PO intake tolerated: yes Flatus: yes Ambulation: yes Vital Signs (12 hours) Temp Pulse Resp BP Pulse Ox 08/13/17 06:00 109 H 18 137/88 08/13/17 04:30 98.2 F 107 H 18 157/104 H 08/12/17 23:30 97.6 F 99 20 140/93 H 08/12/17 20:00 97.6 F 113 H 20 135/92 H 97 - Physical Examination General: NAD Cardiovascular: no m/r/g, RRR Respiratory: clear to auscultation bilaterally, non-labored breathing Abdominal: + bowel sounds, no distention Skin: CS incision dry & intact, no rash Neurological: no gross focal deficits Result Diagrams: 08/11/17 16:57 08/11/17 16:57 (1) spinal headache Code(s): O89.4 - SPINAL AND EPIDUR ANESTHESIA-INDUCED HDACHE DURING THE PUERP Status: Acute Comment: -not hyperreflexive at this check (0830) -SBP 120s/70s at this time. Will consider ccb upon discharge. Pt has labetalol prn for systolic >160. -Anesthesiology consulted with concern for spinal headache. Blood patch to be placed. (2) Hx of vaginal delivery Code(s): [id number] - Status: Acute Comment: see above. - Assessment/Plan -->4 s/p after IOL for PreE with severe features, ppd 5, discharged then readmitted on 08/10 for a persisent headache d/t concern for persistent PreE with severe features vs epidural induced headache, now s/p blood patch with resolution of headache. 1.)Epidural induces headache, s/p blood patch, now resolved. 2.)Hypertension, chronic Increase Nifedipine to 30mg BID okay to discharge with script, and follow-up appointment on Friday educated on checking blood pressures at home and advised to call the clinic if > 160/100 or <90/60. <Lori Daly - Last Filed: 08/13/17 10:57> Vital Signs (12 hours) Temp Pulse Resp BP BP 08/13/17 08:50 98.4 F 102 H 18 08/13/17 08:48 102 H 147/85 H 08/13/17 08:00 98.4 F 102 H 20 147/85 H 08/13/17 06:00 109 H 18 137/88 08/13/17 04:30 98.2 F 107 H 18 157/104 H Result Diagrams: 08/11/17 16:57 08/11/17 16:57 - Assessment/Plan Correction: Patient does not yet have diagnosis of chronic hypertension but was dx with preeclampsia with severe features with recent delivery. <Sandra Rodrigez - Last Filed: 08/13/17 12:39> Attending Addendum - Attending Addendum I personally evaluated the patient and discussed the management with Dr. Daly I agree with the History, Examination, Assessment and Plan documented above with any addition or exceptions noted below. 22 yo female s/p IOL for preeclampsia with severe features now on admitted for evaluation of severe/worsening DUNCAN. PPD#5. HD#2. Dx and admitted on 08/07 for preeclampsia with severe features. Placed on mag and continued for 24 hours after delivery. Patient met criteria by severe range BP and DUNCAN. At time of d/c BP improved to 130s. On admission, noted to have spinal headache now s/p blood patch. DUNCAN resolved. No other issues. BP still remains mild range with CCB. Will add second dose. Monitor BP at home x2. Keep log. Take to office visit on Friday. Precautions discussed. Patient stable for discharge this afternoon. No NSAIDs for pain. ABrayMD <Sandra Rodrigez - Last Filed: 08/13/17 12:39>
[2017-08-13] MEDS ORDERED: NIFEdipine XL 30 MG TAB PO SCH ×2 (09:00→21:00)
[2017-08-13 12:28] VITALS: BP 133/92; TEMP 97.8
== END 2017-08-13 14:22 | disposition home or self-care (01) | DRG 776 ==
LOC: ERS 16:43 → L&D 08-12 01:34 → 3SW 08-12 12:01
PROVIDERS: ADMIT Family Medicine; ATTEND Family Medicine
DX: O89.4 Spinal and epidural anesthesia-induced headache during the puerperium (principal); R00.0 Tachycardia, unspecified; O14.15 Severe pre-eclampsia, complicating the puerperium; Z82.49 Family history of ischemic heart disease and other diseases of the circulatory system
CPT/HCPCS: 80053; 81003; 81015; 82570; 83735; 84100; 84156; 84550; 85025; 85610; 85730; 93005; A4216; J1200; J2765; J3475

== ENCOUNTER 2018-07-15 20:40 | Day surgery (SDC) | payer OTHER ==
[2018-07-15 21:36] VITALS: BP 144/90; TEMP 98.3; BMI 39.4
--- NOTE | 2018-07-15 22:27 | PDOC.FPROB ---
FMR OB H&P: HPI - History of Present Illness Chief Complaint: high BP History of Present Illness: This is a 23yo F presenting with a CC of high blood pressures. She curently takes labetalol daily for high blood pressures and has hx of chronic HTN. The patient also has a hx of pre-eclampsia with her last 2 pregnancies. The patient states that her BP usually runs in the SBP 140s, but today it went up to 160. She states she feels SOB, chest pressure as well as upper abdominal pain when she feels her BP is high. The patient states the abdominal pain is midepigastric and RUQ, sharp in nature, and intermittent. Patient endorses (+) FM and CTX intermittently. The patient denies LOF or vaginal bleeding. She denies headache, vision changes, or LE swelling. Pre-E labs were done last week in clinic and were negative. Primary Care Physician: Regina FMR OB H&P: Current - Care : 5 Para: 4 Gestational age: 36.1 Due date: Aug 11 Dating Criteria: 21.1wk US Course/Complications: chronic HTN - OB Labs Blood type: A RH: positive Antibody Screen: negative HIV: negative RPR: negative HepBsAg: negative Rubella: immune Gonorrhea: negative Chlamydia: negative 1 hour gtt: 77 GBS: negative H&H: 12, 35.1 Platelets: 285 FMR OB H&P: History - Past Medical History PMH: chronic HTN - OB History OB History: 1. viable F, 41 wks, , 11 ys old 2. viable M, 41 wks, 9 yrs old, 3. viable F, 40 weeks, complicated by HTN, 1 yrs old, 4. viable M, 37 wks, complicated by pre-E, , 11 months old - Surgical History Sx History: none - Social History Social History: Denies alcohol, tobacco or drug use - Family History Family History: sibling with pre-E during her pregnancies FMR OB H&P: Medications - Current Home Medications: Medication Instructions Recorded Confirmed Type Vitamin 1 tab PO DAILY #30 tab 03/19/15 07/15/18 Rx Aspirin [Children's Aspirin] 81 mg PO DAILY 07/15/18 07/15/18 History Labetalol [Normodyne] 1 capsule PO DAILY 07/15/18 07/15/18 History Allergies/Adverse Reactions: Allergies Allergy/AdvReac Type Severity Reaction Status Date / Time No Known Allergies Allergy Verified 07/12/17 22:57 FMR OB H&P: ROS - Review of Systems General: denies: fever/chills, weight/appetite/sleep changes Eyes: denies: vision changes, double vision, scotomas, floaters ENT: denies: nasal congestion, rhinorrhea Cardiovascular: reports: chest pain (pressure), palpitation. denies: edema Respiratory: reports: shortness of breath. denies: cough Gastrointestinal: reports: abdominal pain. denies: cramping, nausea, vomiting, diarrhea, constipation Genitourinary (Female): reports: contractions (intermittent). denies: vaginal pain, vaginal bleeding FMR OB H&P: Vital Signs - Maternal Vital signs: Vital Signs - First Documented Temp Pulse Resp BP 98.3 F 102 H 18 144/90 H 07/15/18 20:42 07/15/18 20:42 07/15/18 20:42 07/15/18 20:42 - Heart Tones Baseline: 148 Variability: moderate Acceleration: absent Deceleration: absent Category: category 1 [place] contractions every: not on monitor FMR OB H&P: Physical Exam - Physical Exam General: NAD, awake, alert and oriented HEENT: normocephalic and atraumatic, EOMI, MMM, grossly normal vision, grossly normal hearing Chest: non-tender to palpation, no lesions Heart: RRR, normal S1/S2, no murmurs/rubs/gallops, pulses present General: CTAB, no respiratory distress, good air movement, no wheezing Abdomen: gravid, bowel sound present Deviation from normal: TTP in RUQ and midepigastrium Musculoskeletal: FROM in all four extremities Neurological: strength +5 Skin: no rash, good tugor Lymphatic: no unusual bruising or bleeding Psychiatric: intact recent and remote memory, good judgement and insight, normal mood and affect FMR OB H&P: A/P - Problem List (1) HTN in , chronic Current Visit: Yes Status: Acute Code(s): O10.919 - UNSP PRE-EXISTING HTN COMP , UNSP TRIMESTER (2) Intrauterine Current Visit: Yes Status: Acute Code(s): Z34.90 - ENCNTR FOR SUPRVSN OF NORMAL , UNSP, UNSP TRIMESTER (3) Hx of pre-eclampsia in prior , currently Current Visit: Yes Status: Acute Code(s): O09.299 - SUPRVSN OF PREG W POOR REPRODCTV OR OBSTET HISTORY, UNSP TRI Disposition: This is a 23 yo F here for elevated blood pressures at home. complicated by chronic HTN - BPs: 146/88, 142/87, 144/90, 162/89, 158/90 - Will continue to monitor BP and VS - Will give 50mg labetalol now dose Hx of Pre-eclampsia - Will order pre-E labs including urine protein/creatinine, uric acid, CBC, and CMP Case discussed with Dr. Lopez Discussion: Date/Time: 07/15/182223 This H&P was discussed with [] and [] who agree with the above documentation and plan.
[2018-07-15] MEDS ORDERED: Labetalol 100 MG TAB PO SCH (23:00)
[2018-07-15 23:17] LABS: #Basophils 0.1 thou/uL (0.0-0.2); #Eosinphils 0.1 thou/uL (0.0-0.7); #Lymphocytes 3.2 thou/uL (1.20-3.40); #Monocytes 0.8 thou/uL (0.11-0.59); #Neutrophils 6.5 thou/uL (1.40-6.50); %Basophils 0.5 % (0.0-1.0); %Eosinophils 0.8 % (0.0-10.0); %Lymphocytes 30.2 % (21.0-51.0); %Neutrophils 61.4 % (42.0-75.0); Hemoglobin 12.3 g/dL (12.0-16.0); Mean Corpuscular HGB CONC 33.6 g/dL (32.0-36.0); Mean Corpuscular Hemoglobin 31.4 pg (27.0-31.0); Mean Corpuscular Volume 93.5 fL (78.0-98.0); Mean Platelet Volume 7.7 fL (7.4-10.4); Platelet Count 274 thou/uL (130-400); RBC Distribution Width 12.9 % (11.5-14.5); Red Blood Cell (RBC) Count 3.92 mill/uL (4.20-5.40); White Blood Cell (WBC) Count 10.6 thou/uL (4.8-10.8)
[2018-07-15 23:27] LABS: Creatinine, Urine 123.06 mg/dL (47-110)
[2018-07-15 23:38] LABS: ALT (SGPT) 34 U/L (8-55); AST (SGOT) 31 U/L (5-34); Albumin 3.2 g/dL (3.5-5.0); Alkaline Phosphatase 152 U/L (40-150); Anion Gap 13 mmol/L (10-20); BUN (Urea Nitrogen) 8 mg/dL (7.0-18.7); Bilirubin, Total 0.2 mg/dL (0.2-1.2); Calc. Creatinine Clearance 242 mL/min (70-130); Calcium 8.5 mg/dL (7.8-10.44); Carbon Dioxide 19 mmol/L (22-29); Chloride 107 mmol/L (98-107); Estimated GFR-MDRD Greater than 90; Globulin 3.4 g/dL (2.4-3.5); Glucose 94 mg/dL (70-105); Potassium 3.7 mmol/L (3.5-5.1); Protein, Total 6.6 g/dL (6.0-8.3); Sodium 135 mmol/L (136-145); Uric Acid 4.1 mg/dL (2.6-6.0)
== END 2018-07-16 | disposition home or self-care (01) ==
LOC: L&D/OP 20:40
PROVIDERS: ATTEND Family Medicine
DX: O10.913 Unspecified pre-existing hypertension complicating pregnancy, third trimester (principal); O99.89 Other specified diseases and conditions complicating pregnancy, childbirth and the puerperium; R07.89 Other chest pain; R06.02 Shortness of breath; R10.11 Right upper quadrant pain; R10.13 Epigastric pain; O09.293 Supervision of pregnancy with other poor reproductive or obstetric history, third trimester; Z3A.36 36 weeks gestation of pregnancy; Z79.82 Long term (current) use of aspirin; Z79.899 Other long term (current) drug therapy
CPT/HCPCS: 36415; 80053; 82570; 84156; 84550; 85025; 99285

== ENCOUNTER 2018-07-22 14:32 | Inpatient (IN) | payer OTHER ==
[2018-07-22] MEDS ORDERED: Bupivacaine 0.25% HCL 30 ML VIAL ONE (15:00)
[2018-07-22] MEDS ORDERED: Bupivacaine/Epinephrine 0.25% 30 ML VIAL ONE (15:00)
[2018-07-22] MEDS ORDERED: Sodium Chloride 0.9% (PF) 10 ML VIAL ONE (15:00)
[2018-07-22 15:05] VITALS: BMI 40.4
--- NOTE | 2018-07-22 15:16 | PDOC.FPROB ---
FMR OB H&P: HPI - History of Present Illness Chief Complaint: sent from clinic for induction of labor Indentification: 23 year old @ 37.1 weeks by 21.1 week sono History of Present Illness: Pt is a 23 year old @ 37.1 weeks by 21.1 week sono who was sent to L&D for induction of labor. Pt has a history of chronic hypertension on ASA and Labetalol and preeclampsia with severe features in a prior . She was noted to have a BP of 158/93 at [facility] today prior BPs in clinic were in 130s. Pt is complaining of headache currently. She also reports contractions q 10 minutes. She denies VB, LOF, and decrease in FM. Primary Care Physician: Dr. Jayy Tapia MD FMR OB H&P: Current - Care : 5 Para: 4 Gestational age: 37.1 Due date: 08/11/2018 Dating Criteria: 21.1 wk sono Total weight gain: 15 lbs Course/Complications: chronic hypertension on labetalol and ASA - OB Labs Blood type: A RH: positive Antibody Screen: negative HIV: negative RPR: negative Rubella: immune Urine drug screen: positive (positive on initial OB UDS, negative on repeat x 2. ) Gonorrhea: negative Chlamydia: negative Pap Smear: ASCUS (06/2018) 1 hour gtt: failed - 146 3 hour GTT: passed A1c: 5.0 GBS: negative H&H: 12.4/37.1 Platelets: 303 Additional labs: 07/08/18 - Urine protein creatinine- 0.3 - Anatomy Survey Anatomy survey: No abnormalities noted; gender - Additional Ultrasound Additional: US with MFM on 07/20 - EFW 71% - AC - 98% - Normal ROGERS - UA dopplers normal for GA - BPP 05/27 FMR OB H&P: History - Past Medical History PMH: None - OB History OB History: History of Pre-e with severe features in prior . x 4 all term. - Surgical History Sx History: None - Social History Social History: Denies smoking, alcohol, and drug use. positive UDS in early . - Family History Family History: None FMR OB H&P: Medications - Current Home Medications: Medication Instructions Recorded Confirmed Type Vitamin 1 tab PO DAILY #30 tab 03/19/15 07/22/18 Rx Aspirin [Children's Aspirin] 81 mg PO DAILY 07/15/18 07/22/18 History Labetalol [Normodyne] 50 mg PO BID 07/22/18 07/22/18 History Allergies/Adverse Reactions: Allergies Allergy/AdvReac Type Severity Reaction Status Date / Time No Known Allergies Allergy Verified 07/22/18 15:05 FMR OB H&P: ROS - Review of Systems General: denies: fever/chills Respiratory: denies: cough, congestion Gastrointestinal: denies: abdominal pain Neurologic: denies: headache Psychological: denies: depression, anxiety FMR OB H&P: Vital Signs - Maternal Vital signs: Vital Signs - First Documented Temp Pulse Resp BP 98.8 F 121 H 18 139/94 H 07/22/18 15:01 07/22/18 15:01 07/22/18 15:01 07/22/18 15:01 - Heart Tones Baseline: 120 Variability: moderate Acceleration: present Category: category 1 FMR OB H&P: Physical Exam - Physical Exam General: NAD HEENT: normocephalic and atraumatic, PERRLA Heart: normal S1/S2, no murmurs/rubs/gallops Deviation from normal: mildly tachycardic General: CTAB Abdomen: soft, gravid, non-tender Musculoskeletal: FROM in all four extremities Neurological: cranial nerves II through XII intact, DTR +2, no clonus Skin: no rash Psychiatric: normal mood and affect FMR OB H&P: A/P - Problem List (1) Term Current Visit: Yes Status: Acute Code(s): Z34.80 - ENCOUNTER FOR SUPRVSN OF NORMAL , UNSP TRIMESTER (2) HTN in , chronic Current Visit: No Status: Acute Code(s): O10.919 - UNSP PRE-EXISTING HTN COMP , UNSP TRIMESTER (3) Hx of pre-eclampsia in prior , currently Current Visit: No Status: Acute Code(s): O09.299 - SUPRVSN OF PREG W POOR REPRODCTV OR OBSTET HISTORY, UNSP TRI (4) Glucose intolerance Current Visit: Yes Status: Acute Code(s): E74.39 - OTHER DISORDERS OF INTESTINAL CARBOHYDRATE ABSORPTION Disposition: Pt is a 23 yo @ 37.1 weeks with a hx of chronic hypertension on ASA and labetalol who presents for pre-eclampsia workup and medical induction of labor. - Currently there are no L&D beds available to begin induction. Will fully admit patient for induction whenever possible. - SVE in clinic this AM /-3 with a cunningham score of 5. Will repeat SVE prior to induction to determine mode of induction - Bedside sono this AM showed cephalic presentation with anterior placenta. - serial BPs. - pre-e labs to include CBC, CMP, Uric acid, and urine protein/Cr - Resume Labetalol. - will administer 1g Tylenol for DUNCAN. - will obtain a random accucheck with pt's hx of glucose intolerance. Discussion: Date/Time: 07/22/18 1516 This H&P was discussed with Dr. Sepulveda who agrees with the above documentation and plan. Attending Addendum - Attending Addendum Date/Time: 07/22/18 1730 I personally evaluated the patient and discussed the management with Dr. Morin. I agree with and repeated the History, Examination, Assessment and Plan documented above with any addition or exceptions noted below. Mild headache, occasional spots but no scotoma currently. Has not taken any pain medications. Exam with no clonus or increased DTRS. FHT cat 1. No ctx. Cervix favorable in clinic. Pre E workup, APAP 1 g, and begin pit when a room/nursing available for uncontrolled cHTN vs preE +/- severe features.
[2018-07-22] MEDS ORDERED: Acetaminophen 500 MG TAB PO SCH (15:45)
[2018-07-22 15:49] LABS: Amphetamine Not Detected (NotDetected); Barbiturates Screen Not Detected (NotDetected); Benzodiazepine Screen Not Detected (NotDetected); Cocaine Metabolite Screen Not Detected (NotDetected); Medtox Control Line Valid? VALID (VALID); Medtox Reader # READER 1; Methadone Not Detected (NotDetected); Methamphetamine Not Detected (NotDetected); Opiate Screen Not Detected (NotDetected); Oxycodone Screen Not Detected (NotDetected); Phencyclidine (PCP) Not Detected (NotDetected); THC/Cannabinoid Screen Not Detected (NotDetected); Tricyclic Screen Not Detected (NotDetected)
[2018-07-22 15:51] LABS: #Basophils 0.1 thou/uL (0.0-0.2); #Eosinphils 0.1 thou/uL (0.0-0.7); #Lymphocytes 2.5 thou/uL (1.20-3.40); #Monocytes 0.7 thou/uL (0.11-0.59); #Neutrophils 7.3 thou/uL (1.40-6.50); %Basophils 0.5 % (0.0-1.0); %Eosinophils 0.6 % (0.0-10.0); %Lymphocytes 23.4 % (21.0-51.0); %Monocytes 6.4 % (0.0-10.0); Hemoglobin 12.7 g/dL (12.0-16.0); Mean Corpuscular HGB CONC 33.8 g/dL (32.0-36.0); Mean Corpuscular Hemoglobin 31.4 pg (27.0-31.0); Mean Corpuscular Volume 92.9 fL (78.0-98.0); Mean Platelet Volume 7.9 fL (7.4-10.4); Platelet Count 280 thou/uL (130-400); Red Blood Cell (RBC) Count 4.05 mill/uL (4.20-5.40); White Blood Cell (WBC) Count 10.6 thou/uL (4.8-10.8)
[2018-07-22 15:55] LABS: Creatinine, Urine 132.19 mg/dL (47-110)
[2018-07-22 16:10] LABS: ALT (SGPT) 30 U/L (8-55); AST (SGOT) 31 U/L (5-34); Albumin 3.4 g/dL (3.5-5.0); Alkaline Phosphatase 154 U/L (40-150); Anion Gap 14 mmol/L (10-20); BUN (Urea Nitrogen) 8 mg/dL (7.0-18.7); Bilirubin, Total 0.3 mg/dL (0.2-1.2); Calc. Creatinine Clearance 235 mL/min (70-130); Calcium 9.6 mg/dL (7.8-10.44); Carbon Dioxide 20 mmol/L (22-29); Chloride 106 mmol/L (98-107); Estimated GFR-MDRD Greater than 90; Globulin 3.1 g/dL (2.4-3.5); Glucose 97 mg/dL (70-105); Protein, Total 6.5 g/dL (6.0-8.3); Sodium 136 mmol/L (136-145); Uric Acid 5.4 mg/dL (2.6-6.0)
[2018-07-22] MEDS: Lactated Ringer's 1,000 ML IV SCH ×2 (18:30→23:08)
--- NOTE | 2018-07-22 21:43 | PDOC.LDPN ---
Labor & Delivery Progress Note - Subjective Subjective: comfortable - Objective Abnormal vital signs: 141/92, HR 113 General: NAD, resting Dilation: 2 Effacement: 50% Station: -3 FHT: category 1, variability present [place] contractions every: none on monitor - Assessment (1) Glucose intolerance Code(s): E74.39 - OTHER DISORDERS OF INTESTINAL CARBOHYDRATE ABSORPTION Current Visit: Yes Status: Acute (2) Term Code(s): Z34.80 - ENCOUNTER FOR SUPRVSN OF NORMAL , UNSP TRIMESTER Current Visit: Yes Status: Acute (3) HTN in , chronic Code(s): O10.919 - UNSP PRE-EXISTING HTN COMP , UNSP TRIMESTER Current Visit: No Status: Acute (4) Hx of pre-eclampsia in prior , currently Code(s): O09.299 - SUPRVSN OF PREG W POOR REPRODCTV OR OBSTET HISTORY, UNSP TRI Current Visit: No Status: Acute -: Intrauterine , term 37.1 wks today by 21.1 wk /-1 check now, TERRY of 4 continue to monitor BP pre-E workup negative continue to monitor glucose initial glucose was 97 start induction with cytotec
[2018-07-22] MEDS ORDERED: NS / Oxytocin 40 units/1000ml 1,000 ML IV PRN (21:49)
[2018-07-22] MEDS ORDERED: Lidocaine 1% (PF) 30 ML VIAL SC PRN (21:49)
[2018-07-22] MEDS ORDERED: Promethazine HCl 25 MG/ML VIAL IM PRN (21:49)
[2018-07-22] MEDS ORDERED: Ondansetron HCl/PF 4 MG/2 ML Vial IVP PRN (21:49)
[2018-07-22] MEDS ORDERED: Misoprostol 100 MCG TAB ONE (22:41)
[2018-07-22] MEDS: Misoprostol 100 MCG TAB VAG SCH (22:43)
[2018-07-22 22:44] LABS: Syphilis Antibody Nonreactive (Nonreactive); Syphilis Antibody Index 0.05 S/CO (<1.00 Non-Reactive)
[2018-07-22 23:45] LABS: HBSAg Index 0.26 S/CO (0-0.99); Hep B Surf Ag Non-Reactive S/CO (NonReactive)
[2018-07-23] MEDS: Misoprostol 100 MCG TAB VAG SCH ×2 (02:20→05:56)
[2018-07-23] MEDS ORDERED: Misoprostol 100 MCG TAB ONE (02:27)
[2018-07-23] MEDS ORDERED: Butorphanol Tartrate 1 MG/ML VIAL SLOW IVP PRN (03:04)
--- NOTE | 2018-07-23 03:04 | PDOC.LDPN ---
Labor & Delivery Progress Note - Subjective Subjective: comfortable, painful contractions, no concerns - Objective Vital signs reviewed and normal: yes General: NAD, resting, breathing through contractions Uterine fundus: non tender Dilation: 2 Effacement: 50% Station: -3 FHT: category 1, variability present - Assessment (1) Term Code(s): Z34.80 - ENCOUNTER FOR SUPRVSN OF NORMAL , UNSP TRIMESTER Current Visit: Yes Status: Acute (2) Intrauterine Code(s): Z34.90 - ENCNTR FOR SUPRVSN OF NORMAL , UNSP, UNSP TRIMESTER Current Visit: No Status: Acute Plan: continue plan of care -: This is a 23 yo F @ 37.1wks here for induction. Intrauterine , term - Cervical check /-3, cytoetch X 2; will recheck in 4 hours - Foster score of 4; can consider pitocin at next check - CTX 1-2 every 10 min; will give stadol for pain - Will continue to monitor BPs - Pre-e work up neg - Will continue to monitor glucose: initial glucose was 97 - Continue plan of care Case discussed with Dr. Guzman
[2018-07-23] MEDS ORDERED: Butorphanol Tartrate 1 MG/ML VIAL ONE (03:06)
[2018-07-23] MEDS ORDERED: Bupivacaine 0.5% 20 ML, fentaNYL Citrate/PF 400 MCG in Sodium Chloride 0.9% 72 ML EPIDURAL SCH (05:00)
[2018-07-23] MEDS ORDERED: DISCONTINUE ALL PREVIOUS NARCOTICS FS SCH (05:00)
--- NOTE | 2018-07-23 05:31 | PDOC.LDPN ---
Labor & Delivery Progress Note - Subjective Subjective: painful contractions - Objective Vital signs reviewed and normal: yes General: breathing through contractions Uterine fundus: non tender Dilation: 6 Effacement: 75% Station: -2 FHT: category 1, acceleration absent, variability present - Assessment (1) Term Code(s): Z34.80 - ENCOUNTER FOR SUPRVSN OF NORMAL , UNSP TRIMESTER Current Visit: Yes Status: Acute (2) Intrauterine Code(s): Z34.90 - ENCNTR FOR SUPRVSN OF NORMAL , UNSP, UNSP TRIMESTER Current Visit: No Status: Acute Plan: continue plan of care -: This is a 23 yo F @ 37.1wks here for induction. Intrauterine , term - Cervical check /-2, cytoetch X 2; will recheck in 2 hours - Foster score of 9; spont vag delivery likely, no induction necessary - no definite CTX pattern on monitor; pt progressing; will consider IUPC - BPs 190/100 in room; pt in pain due to CTX - will continue to monitor BPs s/p epidural - Pre-e work up neg - Will continue to monitor glucose: initial glucose was [address] Guzman
[2018-07-23] MEDS ORDERED: Lidocaine 1% PF 5 ML VIAL ONE (05:36)
[2018-07-23] MEDS ORDERED: Lactated Ringer's 500 ML IV PRN (06:07)
[2018-07-23] MEDS ORDERED: Ondansetron HCl/PF 4 MG/2 ML Vial IVP PRN (06:07)
[2018-07-23] MEDS ORDERED: Eucerin (Mineral Oil/Petrolatum,White) 30 gm Jar TOP PRN (06:07)
[2018-07-23] MEDS ORDERED: ePHEDrine/0.9% NaCl/PF SYRINGE 50 mg/10 ml SLOW IVP PRN (06:07)
[2018-07-23] MEDS ORDERED: Naloxone HCl 0.4 mg/ml Vial IVP PRN ×2 (06:07)
[2018-07-23] MEDS ORDERED: diphenhydrAMINE 50 MG/ML VIAL IVP PRN (06:07)
[2018-07-23] MEDS ORDERED: Promethazine HCl 25 MG/ML VIAL IM PRN (06:07)
[2018-07-23] MEDS ORDERED: fentaNYL Citrate/PF 400 MCG, Bupivacaine 0.5% 20 ML in Sodium Chloride 0.9% 72 ML EPIDURAL SCH (06:15)
[2018-07-23] MEDS ORDERED: Communication Order-Pharmacy FS SCH (06:15)
[2018-07-23] MEDS ORDERED: NS / Oxytocin 40 units/1000ml 0 ML ONE (06:39)
--- NOTE | 2018-07-23 07:40 | PDOC.LDPN ---
Labor & Delivery Progress Note - Subjective Subjective: vaginal pressure - Objective Abnormal vital signs: most recent BP 152/70 General: NAD, resting Uterine fundus: palpable contractions SVE: /0 FHT: category 1, variability present [place] contractions every: difficult to visualize with external monitoring Plan: continue plan of care -: This is a 23 yo F @ 37.1wks present for induction. Intrauterine , term - Cervical check /0 @ 0730 - FHTs Cat 1 - no definite CTX pattern on monitor; pt progressing; will consider IUPC - BPs improved with epidural to 130s/70s, most recent BP increased to 152/70 - spont vag delivery likely, will augment with AROM - Pre-e work up neg <Yeny Tapia - Last Filed: 07/23/18 07:40> - Assessment (1) Term Code(s): Z34.80 - ENCOUNTER FOR SUPRVSN OF NORMAL , UNSP TRIMESTER Current Visit: Yes Status: Acute (2) HTN in , chronic Code(s): O10.919 - UNSP PRE-EXISTING HTN COMP , UNSP TRIMESTER Current Visit: No Status: Acute (3) Hx of pre-eclampsia in prior , currently Code(s): O09.299 - SUPRVSN OF PREG W POOR REPRODCTV OR OBSTET HISTORY, UNSP TRI Current Visit: No Status: Acute (4) Glucose intolerance Code(s): E74.39 - OTHER DISORDERS OF INTESTINAL CARBOHYDRATE ABSORPTION Current Visit: Yes Status: Acute <Guanako Sepulveda - Last Filed: 07/23/18 09:33> Attending Addendum - Attending Addendum Date/Time: 07/23/18 0932 I personally evaluated the patient and discussed the management with Dr. Tapia. I agree with the History, Examination, Assessment and Plan documented above with any addition or exceptions noted below. Plan for AROM shortly. <Guanako Sepulveda - Last Filed: 07/23/18 09:33>
[2018-07-23] MEDS ORDERED: Bisacodyl 10 MG SUPP PR PRN (10:44)
[2018-07-23] MEDS ORDERED: Benzocaine/Menthol 20-0.5% 60 ML CAN TOP PRN (10:44)
[2018-07-23] MEDS ORDERED: Milk Of Magnesia 30 ML UDCUP PO PRN (10:44)
[2018-07-23] MEDS ORDERED: NS / Oxytocin 40 units/1000ml 1,000 ML IV SCH ×2 (10:44→11:15)
[2018-07-23] MEDS ORDERED: Preparation H Ointment 28 GM TUBE PR PRN (10:44)
[2018-07-23] MEDS ORDERED: Lanolin Ointment 7 GM TUBE TOP PRN (10:44)
[2018-07-23] MEDS ORDERED: diphenhydrAMINE 25 MG CAP PO PRN (10:44)
--- NOTE | 2018-07-23 10:56 | PDOC.OPDEL ---
OB Operative/Delivery Note Delivery Dr/Surgeon: Radha Sepulveda Pre-Delivery Diagnosis: medically indicated induction (uncontrolled chronic hypertension) Procedure/Post Delivery Dx: spontaneous vaginal delivery Weeks gestation: 37 Anesthesia: epidural - Additional Findings/Plan Placenta delivered: spontaneous Repaired Obstetrical Laceration: none Estimated blood loss: 200 Compilations/Other Findings: None Post delivery plan: routine recovery Attending Addendum - Attending Addendum Date/Time: 07/23/18 1054 I was present for the entire delivery. Viable female delivered OA with AG 06/28. Placed skin to skin with mother and placenta delivered spontaneously immediately afterward. Cord clamped and cut, blood sampled. Uterus firmed with fundal massage and IV pitocin. No lacerations noted. EBL 200 cc. No immediate complications.
[2018-07-23] MEDS: Acetaminophen 325 MG TAB PO PRN ×2 (11:09→16:52)
--- NOTE | 2018-07-23 11:33 | DN-2 ---
DATE OF DELIVERY: 07/23/2018 DELIVERY PHYSICIAN: Dr. Jayy Tapia PODIATRY ASSISTANT: Dr. Guanako Sepulveda PROCEDURE: Spontaneous vaginal delivery. ANESTHESIA: Epidural. ESTIMATED BLOOD LOSS: 200 mL. PREOPERATIVE DIAGNOSES: 1. Term intrauterine in labor. 2. Elective induction for chronic hypertension versus induced hypertension. POSTOPERATIVE DIAGNOSES: 1. Term intrauterine , delivered. 2. Elective induction for chronic hypertension versus induced hypertension. INDICATIONS: This is a 23-year-old G5 now P5 female at 37 and 2 weeks who was induced for chronic hy pertension versus induced hypertension. DELIVERY NOTE: This is a 23-year-old G5, P5-0-0-5 at 37 and 2 weeks who delivered a viable female at 0845 on 07/23/2018. During the antepartum course the patient had sporadic high blood pressures abov e her usual baseline, with adequate pain control. These resolved. PIH workup was negative throughou t the antepartum course. The patient never had any stigmata of PIH. A vigorous female infant was de livered over an intact perineum in the occiput anterior position. Anterior shoulder and then the rem ainder of the body were delivered. No nuchal cord. The head was held down and mouth and nares were bulb suctioned. The cord was clamped and cut. The placenta delivered intact with a 3-vessel cord no cem. Fundal massage was performed and the fundus was firm. Cervix and vagina were inspected and fou nd to be free of lacerations. was given to mother for skin to skin care as she was vigorous. Apgars were 9 and 9 at 1 and 5 minutes, respectively. The patient tolerated the delivery well and w ill go to following routine recovery care.
[2018-07-23] MEDS: Ibuprofen 800 MG TAB PO SCH ×2 (11:37→21:00)
[2018-07-23] MEDS: Ferrous Sulfate 325 MG TAB PO SCH (12:52)
[2018-07-23] MEDS ORDERED: HYDROcodone/Acetaminophen 5/325 mg Tablet PO PRN (14:02)
[2018-07-23 14:27] LABS: #Eosinphils 0.1 thou/uL (0.0-0.7); #Lymphocytes 2.8 thou/uL (1.20-3.40); #Monocytes 1.1 thou/uL (0.11-0.59); #Neutrophils 9.3 thou/uL (1.40-6.50); %Basophils 0.2 % (0.0-1.0); %Eosinophils 0.5 % (0.0-10.0); %Lymphocytes 20.9 % (21.0-51.0); %Monocytes 8.4 % (0.0-10.0); Hemoglobin 11.9 g/dL (12.0-16.0); Mean Corpuscular HGB CONC 33.6 g/dL (32.0-36.0); Mean Corpuscular Hemoglobin 31.2 pg (27.0-31.0); Mean Platelet Volume 7.9 fL (7.4-10.4); Platelet Count 247 thou/uL (130-400); RBC Distribution Width 12.9 % (11.5-14.5); Red Blood Cell (RBC) Count 3.82 mill/uL (4.20-5.40); White Blood Cell (WBC) Count 13.3 thou/uL (4.8-10.8)
[2018-07-23] MEDS ORDERED: Labetalol 100 MG TAB PO SCH ×2 (14:30→21:00)
[2018-07-23] MEDS: Acetaminophen/Codeine 30-300mg Tablet PO PRN ×2 (18:26→23:57)
--- NOTE | 2018-07-23 19:40 | PDOC.EVN ---
Event Note - Event Note Event Note: Patient had two events this afternoon of pain with tachypnea and tachycardia. First episode happened around 1230 when patient was getting up to go to the bathroom after waking. Her Pulse increased to 120, she was tachypneic up to 28- 30 R, and her BP was 144/92. She was afebrile. She described cramping abdominal pain, back pain, and vaginal pain as a /10, and had a headache (which prior to tylenol had been 07/29) of 5/10. She was on oxytocin at that time. Her BP improved to 132/85 after resting, her O2 sat was 95% on RA, and her tachycardia improved to 105 after resting. On PE, her lungs were clear, her fundus was below umbilicus, firm, but very TTP. She had minimal lochia. She was given IV morphine to help with her pain, and her home dose of labetol was restarted. CBC showed WBC of 13 and RBC of 11. Patient seemed anxious and recalled the last time she was in the hospital delivering her last baby that it was a traumatic experience (Patient had pre-eclampsia). Second episode happened around 1515. This time, she waited 2 minutes sitting on her bedside as instructed before getting up. She felt her heart begin to race and she became tachypneic, and told the nurse "It's happening again." She was still on pitocin at that time. She went to the bathroom and then returned to bed. Her R increased ot 22, pulse was 114, and O2 was 98 on RA, and BP was 170/ 100. Repeat BP after 15 minutes was systolic 130s. She complained of cramping and headache 4/5. Her pitocin was stopped as this was believed to be contributing to her cramping and pain. Patient was dosed with PRN tylenol. Patient remained afebrile. Some of her symptoms may be associated with her anxiety, but we will continue to monitor her closely for pre-eclampsia, bleeding , and infection. <Yeny Tapia - Last Filed: 07/23/18 19:27> Attending Addendum - Attending Addendum Date/Time: 07/24/18 0843. Seen and examined multiple times on 07/23 Patient with a couple episodes as described above. She currently is feeling very anxious and her symptoms make her feel like she did with her last delivery and she says she "just wants to be normal." She describes a history of similar events in the past where she feels nauseous, palpitations, and anxiety. She is complaining of abdominal pain, but no headache/BARTOLO/RUQ pain. Anxious appearing, tachycardic, regular rhythm, CTAB, no inc wob on my exam despite documented RR, no clonus or increased DTRs. Plan for IV pain control, restart home labetalol, CBC, closely monitor BPs for severe range and if symptoms persist will pursue CTA to r/o PE. <Guanako Sepulveda - Last Filed: 07/24/18 08:46>
[2018-07-23] MEDS: Docusate Calcium (SURFAK) 240 MG CAP PO SCH (21:00)
[2018-07-24] MEDS ORDERED: Labetalol 100 MG TAB PO SCH (00:15)
[2018-07-24] MEDS: Ibuprofen 800 MG TAB PO SCH ×3 (04:46→21:51)
--- NOTE | 2018-07-24 05:09 | PDOC.PP ---
Post Progress Note Post Day #: 1 Subjective: Patient continues to have shortness of breath and chest heaviness when she gets up to walk. She denies leg pain or cough. She has been eating without difficulty. She complains of cramps. She has had less blood loss than a regular period. PO intake tolerated: yes Flatus: yes Ambulation: yes Vital Signs (12 hours) Temp Pulse Resp BP BP Pulse Ox 07/24/18 04:43 98.7 F 118 H 20 120/77 07/24/18 00:53 107 H 141/89 H 07/24/18 00:00 98.0 F 107 H 20 141/89 H 07/23/18 22:13 106 H 20 167/120 H 07/23/18 21:03 111 H 20 145/93 H 07/23/18 20:58 111 H 135/90 07/23/18 20:25 99.0 F 109 H 20 145/95 H 98 Weight Weight 100.244 kg - Physical Examination General: NAD Cardiovascular: no m/r/g, RRR Respiratory: clear to auscultation bilaterally, non-labored breathing Deviation from normal: No crackles or diminished breath sounds Abdominal: + bowel sounds, no distention, appropriately TTP Fundus firm & at: difficult to appreciate 2/2 obesity and tenderness to palpation Extremities: negative homans (B) Neurological: no gross focal deficits Psychiatric: A&Ox3, normal affect Result Diagrams: 07/23/18 14:13 07/22/18 15:18 Additional Labs: Post Labs Blood Type A POSITIVE 07/22/18 15:18 Hep Bs Antigen Non-Reactive S/CO (NonReactive) 07/22/18 15:18 (1) Vaginal delivery Code(s): O80 - ENCOUNTER FOR FULL-TERM UNCOMPLICATED DELIVERY Status: Acute Comment: 25 yo -->4 delivered a TAGA M at 0456 on 08/08 via at 37.2, induction due to pre-eclampsia with severe features. - Tolerating oral intake, normal lochia, voiding and passing flatus - Able to ambulate yesterday - going well, no concerns - Assessment/Plan # Tachypnea, tachycardia - patient continues to have dyspnea with exertion, she has been tachycardic overnight - this AM took pulse 15 minutes apart and remained 120 despite increase to labetolol 100mg BID overnight - Ordered CTA to r/o PE - CBC, TSH, BNP ordered - consider Echocardiogram, fluids if CTA is negative # S/P day 1 - 200 EBL - less blood loss than a period - walking, eating, passing gas
[2018-07-24 05:50] LABS: #Basophils 0.1 thou/uL (0.0-0.2); #Eosinphils 0.1 thou/uL (0.0-0.7); #Lymphocytes 3.7 thou/uL (1.20-3.40); #Monocytes 0.7 thou/uL (0.11-0.59); #Neutrophils 6.3 thou/uL (1.40-6.50); %Basophils 0.6 % (0.0-1.0); %Eosinophils 1.1 % (0.0-10.0); %Lymphocytes 34.1 % (21.0-51.0); %Monocytes 6.7 % (0.0-10.0); %Neutrophils 57.5 % (42.0-75.0); Mean Corpuscular Hemoglobin 32.1 pg (27.0-31.0); Mean Corpuscular Volume 94.3 fL (78.0-98.0); Mean Platelet Volume 7.7 fL (7.4-10.4); Platelet Count 227 thou/uL (130-400); Red Blood Cell (RBC) Count 3.42 mill/uL (4.20-5.40); White Blood Cell (WBC) Count 10.9 thou/uL (4.8-10.8)
[2018-07-24 06:52] LABS: ALT (SGPT) 28 U/L (8-55); AST (SGOT) 29 U/L (5-34); Albumin 2.8 g/dL (3.5-5.0); Alkaline Phosphatase 126 U/L (40-150); Anion Gap 12 mmol/L (10-20); BUN (Urea Nitrogen) 9 mg/dL (7.0-18.7); Bilirubin, Total 0.2 mg/dL (0.2-1.2); Calc. Creatinine Clearance 239 mL/min (70-130); Calcium 9.2 mg/dL (7.8-10.44); Carbon Dioxide 22 mmol/L (22-29); Chloride 105 mmol/L (98-107); Estimated GFR-MDRD Greater than 90; Globulin 2.9 g/dL (2.4-3.5); Glucose 137 mg/dL (70-105); Potassium 3.4 mmol/L (3.5-5.1); Protein, Total 5.7 g/dL (6.0-8.3); Sodium 136 mmol/L (136-145)
[2018-07-24] MEDS: Ferrous Sulfate 325 MG TAB PO SCH ×2 (07:34→17:26)
[2018-07-24] MEDS: Docusate Calcium (SURFAK) 240 MG CAP PO SCH ×2 (09:34→20:59)
[2018-07-24] MEDS: Labetalol 100 MG TAB PO SCH ×2 (09:34→20:59)
--- NOTE | 2018-07-24 09:59 | CT ---
CT ANGIOGRMA THORAX WITH IV CONTRAST AND 3D RECONSTRUCTIONS: DATE: 07/25/2018. HISTORY: , tachycardia, and tachypnea. Shortness of breath when standing. FINDINGS: Thoracic aorta is normal in caliber without evidence of an aortic dissection. There is suboptimal ti navi of the contrast bolus which limits adequate opacification of pulmonary arteries. There is no fi lling defect seen within the central or most proximal segment pulmonary arteries, but there is subopt imal evaluation of the more distal segmental and subsegmental pulmonary arteries limiting evaluation for pulmonary embolus at these levels. There is mild stranding seen in the anterior superior mediast inum also seen on the prior study in 2006, although has decreased and is likely attributable to resid ual thymic tissue. There is atelectasis present at the left lung base. Minimal pleural-based nodular densities are seen in the posterior aspect right lower lobe may be related to focal areas of mild pleural thickening. There is decreased attenuation of the visualized liver likely attributable to diffuse fatty infiltrat ion. Osseous structures are intact. IMPRESSION: 1. Suboptimal timing of the contrast bolus limiting evaluation of subsegmental pulmonary arteries as well as the more distal segmental pulmonary arteries. However, no filling defect is seen involving the central or proximal segmental pulmonary arteries to suggest pulmonary embolus at these levels. 2. Diffuse fatty infiltration of the liver. 3. Probable focal areas of nodular pleural thickening posterior aspect right lower lobe. POS: ANEUDY
[2018-07-24] MEDS: HYDROcodone/Acetaminophen 5/325 mg Tablet PO PRN ×3 (11:07→23:25)
[2018-07-24] MEDS ORDERED: Iopamidol 370 76% 100 ML VIAL ONE (13:25)
--- NOTE | 2018-07-25 04:46 | PDOC.PP ---
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 States she does get anxious when she gets pain and this causes her heart to start beating faster. Discussed guided breathing, this seems to help her. Patient states she is eating and voiding appropriately. Cramping pain about the same as yesterday but manageable. She states she feels ready to go home. PO intake tolerated: yes Flatus: yes Ambulation: yes Vital Signs (12 hours) Temp Pulse Resp BP BP Pulse Ox 07/25/18 00:20 106 H 20 139/76 07/24/18 20:59 111 H 133/83 07/24/18 20:25 98.0 F 107 H 20 133/88 07/24/18 17:51 111 H 18 132/80 97 Weight Weight 100.244 kg - Physical Examination General: NAD Cardiovascular: no m/r/g, RRR Respiratory: clear to auscultation bilaterally, non-labored breathing Abdominal: + bowel sounds, appropriately TTP Fundus firm & at: 2 cm below umbilicus Extremities: negative homans (B) Neurological: no gross focal deficits Psychiatric: A&Ox3, normal affect Result Diagrams: 07/24/18 05:28 07/24/18 05:28 Additional Labs: Post Labs Blood Type A POSITIVE 07/22/18 15:18 Hep Bs Antigen Non-Reactive S/CO (NonReactive) 07/22/18 15:18 (1) Vaginal delivery Code(s): O80 - ENCOUNTER FOR FULL-TERM UNCOMPLICATED DELIVERY Status: Acute Comment: 25 yo -->4 delivered a TAGA M at 0456 on 08/08 via at 37.2, induction due to pre-eclampsia with severe features. - Tolerating oral intake, normal lochia, voiding and passing flatus - Able to ambulate yesterday - going well, no concerns - Assessment/Plan # Tachypnea, tachycardia 2/2 anxiety -still mildly tachycardic, appears to be baseline for patient - no SOB or chest pain, CTA negative - CBC, CMP, TSH, BNP all negative - attributable to anxiety at this time, close follow-up # S/P day 2 - 200 EBL, hgb appropriate - less blood loss than a period - walking, eating, passing gas Dispo: discharge after rounds today <Jayy Tapia - Last Filed: 07/25/18 04:45> Vital Signs (12 hours) Temp Pulse Resp BP BP Pulse Ox 07/25/18 08:55 97 138/82 07/25/18 08:30 97.9 F 97 20 138/82 99 Weight Weight 100.244 kg Result Diagrams: 07/24/18 05:28 07/24/18 05:28 Additional Labs: Post Labs Blood Type A POSITIVE 07/22/18 15:18 Hep Bs Antigen Non-Reactive S/CO (NonReactive) 07/22/18 15:18 (1) Term Code(s): Z34.80 - ENCOUNTER FOR SUPRVSN OF NORMAL , UNSP TRIMESTER Status: Acute (2) HTN in , chronic Code(s): O10.919 - UNSP PRE-EXISTING HTN COMP , UNSP TRIMESTER Status : Acute (3) Hx of pre-eclampsia in prior , currently Code(s): O09.299 - SUPRVSN OF PREG W POOR REPRODCTV OR OBSTET HISTORY, UNSP TRI Status: Acute (4) Glucose intolerance Code(s): E74.39 - OTHER DISORDERS OF INTESTINAL CARBOHYDRATE ABSORPTION Status : Acute <Guanako Sepulveda - Last Filed: 07/25/18 17:17> Attending Addendum - Attending Addendum Date/Time: 07/25/18 1716 I personally evaluated the patient and discussed the management with Dr. Holger Tapia. I agree with and repeated the History, Examination, Assessment and Plan documented above with any addition or exceptions noted below. Pt c/o right leg swelling, no pain. Right does indeed have more edema. Will obtain doppler and if negative plan on d/c. <Guanako Sepulveda - Last Filed: 07/25/18 17:17>
[2018-07-25] MEDS: Ibuprofen 800 MG TAB PO SCH (05:55)
[2018-07-25] MEDS: HYDROcodone/Acetaminophen 5/325 mg Tablet PO PRN ×2 (05:55→10:20)
[2018-07-25] MEDS: Ferrous Sulfate 325 MG TAB PO SCH (07:03)
--- NOTE | 2018-07-25 08:53 | ULT ---
VENOUS DUPLEX SONOGRAM RIGHT LOWER EXTREMITY: HISTORY: Right leg pain and edema. FINDINGS: The right common femoral vein and greater saphenous junction, femoral, deep femoral, popliteal, and p osterior tibial veins were evaluated. There is good color and spectral Doppler flow, compression, an d augmentation. IMPRESSION: No sonographic evidence of deep vein thrombosis right lower extremity. POS: ANEUDY
[2018-07-25] MEDS: Docusate Calcium (SURFAK) 240 MG CAP PO SCH (08:54)
[2018-07-25 08:55] VITALS: BP 138/82
[2018-07-25] MEDS: Labetalol 100 MG TAB PO SCH (08:55)
[2018-07-25 09:22] VITALS: TEMP 97.9
== END 2018-07-25 11:15 | disposition home or self-care (01) | DRG 807 ==
LOC: L&D 14:32 → 3SW 07-23 11:19
PROVIDERS: ADMIT Emergency Medicine; ATTEND Emergency Medicine
PROC: 10E0XZZ Delivery of Products of Conception, External Approach (ICD-10-PCS; principal; 2018-07-23)
PROC: 3E033VJ Introduction of Other Hormone into Peripheral Vein, Percutaneous Approach (ICD-10-PCS; 2018-07-23)
PROC: 10907ZC Drainage of Amniotic Fluid, Therapeutic from Products of Conception, Via Natural or Artificial Opening (ICD-10-PCS; 2018-07-23)
DX: O10.02 Pre-existing essential hypertension complicating childbirth (principal); Z37.0 Single live birth; Z3A.37 37 weeks gestation of pregnancy; O99.810 Abnormal glucose complicating pregnancy; E74.39 Other disorders of intestinal carbohydrate absorption; R00.0 Tachycardia, unspecified; G97.1 Other reaction to spinal and lumbar puncture; R06.82 Tachypnea, not elsewhere classified; O75.89 Other specified complications of labor and delivery
CPT/HCPCS: 36415; 51702; 71275; 80053; 80306; 82570; 83880; 84156; 84443; 84550; 85025; 86780; 86850; 86900; 86901; 87340; 90471; 90686; A4216; G0008; J0595; J2001; J2270; J2405; J3010; J3490; J7050; S0020

== ENCOUNTER 2018-10-17 13:51 | Emergency (ER) | payer OTHER | END 2018-10-17 14:21 | disposition home or self-care (01) | LOC: SCSER 13:51 | DX: K08.89 Other specified disorders of teeth and supporting structures (principal); I10 Essential (primary) hypertension; Z79.899 Other long term (current) drug therapy | CPT/HCPCS: 99282 ==

== ENCOUNTER 2019-01-11 21:26 | Emergency (ER) | payer SELFPAY ==
[2019-01-11] MEDS ORDERED: Ketorolac Tromethamine 30 MG/ML VIAL ONE (21:52)
== END 2019-01-11 22:10 | disposition home or self-care (01) ==
LOC: SCSER 21:26
DX: K04.7 Periapical abscess without sinus (principal); K02.9 Dental caries, unspecified
CPT/HCPCS: 96372; J1885

== ENCOUNTER 2023-06-06 19:40 | Emergency (ER) | payer MEDICAID, SELFPAY ==
[~2023-06-06 19:40] MED LIST changes: -Bupivacaine 0.25% HCL 30 ML VIAL ONE; +Iopamidol-370 76% 500 ML MDV (1 ML CHARGE) ONE
[2023-06-06] MEDS ORDERED: Acetaminophen 500 MG TAB ONE (20:02)
[2023-06-06 20:14] LABS: #Eosinphils 0.1 thou/uL (0.0-0.7); #Monocytes 0.7 thou/uL (0.11-0.59); #Neutrophils 7.2 thou/uL (1.40-6.50); %Basophils 0.4 % (0.0-1.0); %Eosinophils 1.1 % (0.0-10.0); %Lymphocytes 25.7 % (21.0-51.0); %Monocytes 6.8 % (0.0-10.0); %Neutrophils 65.7 % (42.0-75.0); Hematocrit 28.2 % (36.0-47.0); Hemoglobin 9.2 g/dL (12.0-16.0); Mean Corpuscular HGB CONC 32.6 g/dL (32.0-36.0); Mean Corpuscular Hemoglobin 26.3 pg (27.0-31.0); Mean Corpuscular Volume 80.6 fl (78.0-98.0); Mean Platelet Volume 9.8 fL (7.4-10.4); Platelet Count 338 10x3/uL (130-400); RBC Distribution Width 14.6 % (11.5-14.5); White Blood Cell (WBC) Count 10.9 10x3/uL (4.8-10.8)
[2023-06-06 20:36] LABS: ALT (SGPT) 7 U/L (8-55); AST (SGOT) 9 U/L (5-34); Albumin 3.4 g/dL (3.5-5.0); Alkaline Phosphatase 70 U/L (40-110); Anion Gap 13 mmol/L (10-20); BUN (Urea Nitrogen) 7 mg/dL (7.0-18.7); Bilirubin, Total 0.2 mg/dL (0.2-1.2); Calc. Creatinine Clearance 0 mL/min (70-130); Calcium 8.3 mg/dL (7.8-10.44); Carbon Dioxide 20 mmol/L (22-29); Chloride 107 mmol/L (98-107); Estimated GFR 122; Globulin 3.5 g/dL (2.4-3.5); Glucose 103 mg/dL (70-105); Lipase 41 U/L (8-78); Potassium 3.5 mmol/L (3.5-5.1); Protein, Total 6.9 g/dL (6.0-8.3); Sodium 136 mmol/L (136-145)
[2023-06-06 20:40] LABS: Troponin I Less than 0.010 ng/mL (< 0.028)
[2023-06-06 21:04] LABS: Bacteria/HPF 4+ HPF (None Seen); Bilirubin Negative (Negative); Blood, Urine Negative (Negative); CAUTI Indications for Culture Pelvic or flank pain; Clarity Clear (Clear); Glucose, Urine (Dipstick) Normal (Negative); Ketone, Urine Negative (Negative); Leukocyte 250 Leu/uL (Negative); Mucous/LPF Rare LPF (<2+); Nitrite Negative (Negative); Protein, Urine (Dipstick) 20 mg/dL (Neg-Trace); RBC/HPF 0-3 HPF (0-3); Specific Gravity, Urine 1.024 (1.002-1.036); Urobilinogen Normal mg/dL (Less than 2); WBC/HPF 21-50 HPF (0-3); pH, Urine 6.5 (5.0-9.0)
[2023-06-06 21:05] LABS: Urine Culture Reflex Yes Yes
[2023-06-06] MEDS ORDERED: methylPREDNISolone Sod Succ 40 MG VIAL ONE (22:18)
[2023-06-06] MEDS ORDERED: diphenhydrAMINE 50 MG/ML VIAL ONE (22:19)
[2023-06-06] MEDS ORDERED: Morphine 4 MG/ML VIAL ONE (22:19)
[2023-06-06] MEDS ORDERED: Famotidine/PF 20 mg/2ml Vial ONE (22:29)
== END 2023-06-07 01:04 | disposition home or self-care (01) ==
LOC: ERS 19:40
DX: N28.89 Other specified disorders of kidney and ureter (principal); N39.0 Urinary tract infection, site not specified
CPT/HCPCS: 36415; 71045; 71275; 80053; 81001; 83605; 83690; 84484; 85025; 87077; 87086; 93005; 96361; 96374; 96375; J1200; J2270; J2920; Q9967; S0028

== ENCOUNTER 2023-11-11 22:21 | Emergency (ER) | payer OTHER ==
[~2023-11-11 22:21] MED LIST changes: +Iopamidol 370 76% 100 ML VIAL ONE; -Iopamidol-370 76% 500 ML MDV (1 ML CHARGE) ONE
[2023-11-11 23:07] LABS: #Basophils 0.1 thou/uL (0.0-0.2); #Eosinphils 0.2 thou/uL (0.0-0.7); #Monocytes 0.6 thou/uL (0.11-0.59); #Neutrophils 4.8 thou/uL (1.40-6.50); %Basophils 0.5 % (0.0-1.0); %Eosinophils 2.3 % (0.0-10.0); %Lymphocytes 41.5 % (21.0-51.0); %Monocytes 5.8 % (0.0-10.0); %Neutrophils 49.8 % (42.0-75.0); Hematocrit 35.4 % (36.0-47.0); Hemoglobin 11.5 g/dL (12.0-16.0); Mean Corpuscular HGB CONC 32.5 g/dL (32.0-36.0); Mean Corpuscular Hemoglobin 25.8 pg (27.0-31.0); Mean Corpuscular Volume 79.4 fl (78.0-98.0); Mean Platelet Volume 9.9 fL (7.4-10.4); Platelet Count 297 10x3/uL (130-400); RBC Distribution Width 18.7 % (11.5-14.5); Red Blood Cell (RBC) Count 4.46 mill/uL (4.20-5.40); White Blood Cell (WBC) Count 9.6 10x3/uL (4.8-10.8)
[2023-11-11 23:15] LABS: BHCG - Serum Negative (NEGATIVE); Pregs Control Background? CLEAR/WHITE (CLR/WHITE); Pregs Control Bar Appear? YES (CONTROL BAR)
[2023-11-11] MEDS ORDERED: Ondansetron PF 4 MG/2 ML Vial ONE (23:25)
[2023-11-11] MEDS ORDERED: Morphine 4 MG/ML VIAL ONE (23:25)
[2023-11-11 23:28] LABS: ALT (SGPT) 42 U/L (8-55); AST (SGOT) 36 U/L (5-34); Albumin 4.1 g/dL (3.5-5.0); Alkaline Phosphatase 102 U/L (40-110); Anion Gap 14 mmol/L (10-20); BUN (Urea Nitrogen) 12 mg/dL (7.0-18.7); Bilirubin, Total 0.3 mg/dL (0.2-1.2); Calc. Creatinine Clearance 0 mL/min (70-130); Calcium 8.9 mg/dL (7.8-10.44); Carbon Dioxide 21 mmol/L (22-29); Chloride 107 mmol/L (98-107); Estimated GFR 120; Globulin 3.7 g/dL (2.4-3.5); Glucose 95 mg/dL (70-105); Potassium 3.5 mmol/L (3.5-5.1); Protein, Total 7.8 g/dL (6.0-8.3); Sodium 138 mmol/L (136-145)
[2023-11-11 23:32] LABS: Troponin I Less than 0.010 ng/mL (< 0.028)
[2023-11-12 01:05] LABS: Bacteria/HPF None Seen HPF (None Seen); Bilirubin Negative (Negative); Blood, Urine 1+ (Negative); CAUTI Indications for Culture Acute Hematuria; Clarity Turbid (Clear); Glucose, Urine (Dipstick) Normal (Negative); Ketone, Urine Negative (Negative); Leukocyte 500 Leu/uL (Negative); Nitrite Negative (Negative); Protein, Urine (Dipstick) Negative (Neg-Trace); Specific Gravity, Urine 1.016 (1.002-1.036); Urobilinogen Normal mg/dL (Less than 2)
[2023-11-12] MEDS ORDERED: Ketorolac Tromethamine 30 MG (1 mL) VIAL ONE (01:10)
[2023-11-12] MEDS ORDERED: cefTRIAXone (ROCEPHIN) 1 GM VIAL ONE (01:35)
[2023-11-12] MEDS ORDERED: Sodium Chloride 0.9% 100 ML ONE (01:35)
[2023-11-12 02:43] LABS: Urine Culture Reflex Yes Yes
[2023-11-12] MEDS ORDERED: HYDROcodone/Acetaminophen 5/325 mg Tablet ONE (02:47)
== END 2023-11-12 03:25 | disposition home or self-care (01) ==
LOC: ERS 22:21
DX: N10 Acute pyelonephritis (principal); N28.89 Other specified disorders of kidney and ureter; I10 Essential (primary) hypertension
CPT/HCPCS: 36415; 71275; 74177; 80053; 81001; 83880; 84484; 84703; 85025; 87077; 87086; 93005; 96361; 96365; 96375; J0696; J1885; J2270; J2405; J3490; Q9967

== ENCOUNTER 2024-03-30 20:00 | Inpatient (IN) | payer OTHER ==
[~2024-03-30 20:00] MED LIST changes: -Iopamidol 370 76% 100 ML VIAL ONE; +Iopamidol-370 76% 500 ML MDV (1 ML CHARGE) ONE
[2024-03-30 21:19] LABS: #Basophils 0.05 10x3/uL (0.0-0.2); %Basophils 0.6 % (0.0-1.0); %Eosinophils 2.1 % (0.0-10.0); %Lymphocytes 40.1 % (21.0-51.0); %Monocytes 7.5 % (0.0-10.0); %Neutrophils 49.5 % (42.0-75.0); Hematocrit 35.6 % (36.0-47.0); Mean Corpuscular HGB CONC 33.7 g/dL (32.0-36.0); Mean Corpuscular Hemoglobin 27.3 pg (27.0-31.0); Mean Corpuscular Volume 80.9 fL (78.0-98.0); Mean Platelet Volume 10.1 fL (7.4-10.4); Platelet Count 302 10x3/uL (130-400)
[2024-03-30 21:21] LABS: Bacteria/HPF None Seen HPF (None Seen); Bilirubin Negative (Negative); Blood, Urine Negative (Negative); CAUTI Indications for Culture Pelvic or flank pain; Clarity Clear (Clear); Glucose, Urine (Dipstick) Normal (Negative); Ketone, Urine Negative (Negative); Leukocyte Negative Leu/uL (Negative); Nitrite Negative (Negative); Protein, Urine (Dipstick) Negative (Neg-Trace); RBC/HPF 0-3 HPF (0-3); Specific Gravity, Urine 1.008 (1.002-1.036); Urine Culture Reflex No No; Urobilinogen Normal mg/dL (Less than 2); WBC/HPF None Seen HPF (0-3); pH, Urine 6.5 (5.0-9.0)
[2024-03-30] MEDS ORDERED: Morphine 4 MG/ML VIAL ONE (21:22)
[2024-03-30] MEDS ORDERED: Ondansetron PF 4 MG/2 ML Vial ONE (21:22)
[2024-03-30] MEDS ORDERED: Acetaminophen 500 MG TAB ONE (21:35)
[2024-03-30 21:57] LABS: BHCG - Serum Negative (NEGATIVE); Pregs Control Background? CLEAR/WHITE (CLR/WHITE); Pregs Control Bar Appear? YES (CONTROL BAR)
[2024-03-30 22:05] LABS: ALT (SGPT) 28 U/L (8-55); AST (SGOT) 21 U/L (5-34); Albumin 3.4 g/dL (3.5-5.0); Alkaline Phosphatase 82 U/L (40-110); Anion Gap 13 mmol/L (10-20); BUN (Urea Nitrogen) 8 mg/dL (7.0-18.7); Bilirubin, Total 0.1 mg/dL (0.2-1.2); Calc. Creatinine Clearance 0 mL/min (70-130); Calcium 9.1 mg/dL (7.8-10.44); Carbon Dioxide 21 mmol/L (22-29); Chloride 109 mmol/L (98-107); Estimated GFR 121; Glucose 90 mg/dL (70-105); Lipase 60 U/L (8-78); Magnesium 1.8 mg/dL (1.6-2.6); Potassium 3.8 mmol/L (3.5-5.1); Protein, Total 7.4 g/dL (6.0-8.3); Sodium 139 mmol/L (136-145); Troponin I Less than 0.010 ng/mL (< 0.028)
[2024-03-30] MEDS ORDERED: diphenhydrAMINE 50 MG/ML VIAL ONE (22:06)
[2024-03-30] MEDS ORDERED: Famotidine/PF 20 mg/2ml Vial ONE (22:07)
[2024-03-30] MEDS ORDERED: methylPREDNISolone Sod Succ 40 MG VIAL ONE (22:07)
[2024-03-31] MEDS ORDERED: Acetaminophen 650 MG Suppository PR PRN (00:16)
[2024-03-31] MEDS: Propranolol HCl 20 MG TAB PO SCH ×2 (01:08→11:27)
[2024-03-31] MEDS: Methimazole 10 MG TAB PO SCH ×2 (01:25→09:37)
[2024-03-31 02:53] LABS: Free T4 (Free Thyroxine) 2.11 ng/dL (0.70-1.48)
[2024-03-31 04:28] LABS: #Basophils Less than 0.03 10x3/uL (0.0-0.2); #Eosinphils Less than 0.03 10x3/uL (0.0-0.7); %Basophils 0.3 % (0.0-1.0); %Eosinophils 0.1 % (0.0-10.0); %Lymphocytes 14.4 % (21.0-51.0); %Neutrophils 83.9 % (42.0-75.0); Hematocrit 35.6 % (36.0-47.0); Hemoglobin 11.9 g/dL (12.0-16.0); Mean Corpuscular HGB CONC 33.4 g/dL (32.0-36.0); Mean Corpuscular Hemoglobin 27.5 pg (27.0-31.0); Mean Corpuscular Volume 82.2 fL (78.0-98.0); Mean Platelet Volume 10.5 fL (7.4-10.4); Platelet Count 300 10x3/uL (130-400); RBC Distribution Width 14.2 % (11.5-14.5); Red Blood Cell (RBC) Count 4.33 mill/uL (4.20-5.40)
[2024-03-31 04:53] LABS: Anion Gap 14 mmol/L (10-20); BUN (Urea Nitrogen) 8 mg/dL (7.0-18.7); Calc. Creatinine Clearance 134 mL/min (70-130); Calcium 9.2 mg/dL (7.8-10.44); Carbon Dioxide 20 mmol/L (22-29); Chloride 106 mmol/L (98-107); Estimated GFR 99; Glucose 168 mg/dL (70-105); Potassium 2.2 mmol/L (3.5-5.1); Sodium 138 mmol/L (136-145)
[2024-03-31] MEDS ORDERED: Electrolyte Replacement Protocol 1 EACH FS SCH (06:15)
[2024-03-31] MEDS: Potassium Chloride 40 MEQ in Sodium Chloride 0.9% 250 ML 250 ML IVPB SCH (06:45)
[2024-03-31 07:04] LABS: Magnesium 1.7 mg/dL (1.6-2.6)
[2024-03-31] MEDS ORDERED: Propranolol 10 MG TAB PO SCH (07:41)
[2024-03-31] MEDS ORDERED: Acetaminophen 325 MG TAB ONE (08:04)
[2024-03-31] MEDS ORDERED: Magnesium 2 GM/50 ML BAG (IN WATER) ONE (08:05)
[2024-03-31] MEDS: Magnesium 2 GM/50 ML(in water) 2 GM in Premix 1 BAG IVPB SCH (08:39)
[2024-03-31] MEDS: Acetaminophen 325 MG TAB PO PRN (08:39)
[2024-03-31 09:41] LABS: Anion Gap 12 mmol/L (10-20); BUN (Urea Nitrogen) 9 mg/dL (7.0-18.7); Calc. Creatinine Clearance 143 mL/min (70-130); Calcium 9.2 mg/dL (7.8-10.44); Carbon Dioxide 21 mmol/L (22-29); Chloride 107 mmol/L (98-107); Estimated GFR 107; Glucose 200 mg/dL (70-105); Potassium 3.8 mmol/L (3.5-5.1); Sodium 136 mmol/L (136-145)
[2024-03-31] MEDS ORDERED: Ketorolac Tromethamine 30 MG (1 mL) VIAL ONE (10:15)
[2024-03-31] MEDS: Ketorolac Tromethamine 30 MG (1 mL) VIAL IVP SCH (10:21)
[2024-03-31] MEDS ORDERED: traMADol HCl 50 MG TAB ONE (11:22)
[2024-03-31] MEDS: traMADol HCl 50 MG TAB PO PRN (11:27)
[2024-03-31 13:02] VITALS: BMI 34.5
[2024-03-31] MEDS: Morphine 2 MG/ML VIAL SLOW IVP SCH (17:06)
[2024-03-31] MEDS: Ondansetron ODT 4 MG TAB PO PRN (20:24)
[2024-03-31] MEDS: Melatonin 3 MG TAB PO PRN (21:45)
[2024-03-31] MEDS: Ketorolac Tromethamine 30 MG (1 mL) VIAL IVP PRN (23:00)
[2024-04-01] MEDS: Morphine 4 MG/ML VIAL SLOW IVP SCH ×2 (01:10→11:09)
[2024-04-01] MEDS: Ondansetron PF 4 MG/2 ML Vial IVP PRN (08:17)
[2024-04-01 08:38] VITALS: BP 120/76; TEMP 97.5
[2024-04-01] MEDS: Pantoprazole 40 MG VIAL IVP SCH (10:00)
[2024-04-01] MEDS: Scopolamine 1 mg/72 hour Patch TD SCH (11:10)
== END 2024-04-01 13:30 | disposition home or self-care (01) | DRG 645 ==
LOC: ERS 20:00 → ERHOLD 23:29 → 2SW 03-31 12:50 → OBSVTOIN 03-31 16:00
PROVIDERS: ADMIT Student in an Organized Health Care Education/Training Program; ATTEND Internal Medicine
DX: E05.90 Thyrotoxicosis, unspecified without thyrotoxic crisis or storm (principal); I10 Essential (primary) hypertension; F41.9 Anxiety disorder, unspecified; Z85.528 Personal history of other malignant neoplasm of kidney; Z90.5 Acquired absence of kidney; Z79.899 Other long term (current) drug therapy
CPT/HCPCS: 36415; 70491; 71045; 74177; 80048; 80053; 81001; 83690; 83735; 83880; 84439; 84443; 84481; 84484; 84703; 85025; 85379; 93005; 93010; 96374; 96375; C9113; G0378; J1200; J1790; J1885; J2270; J2272; J2405; J2920; J3475; J3480; J7050; Q0162; Q9967; S0028

== ENCOUNTER 2024-07-06 00:23 | Emergency (ER) | payer OTHER, SELFPAY ==
[2024-07-06 00:54] LABS: #Basophils 0.07 10x3/uL (0.0-0.2); %Basophils 0.8 % (0.0-1.0); %Eosinophils 3.1 % (0.0-10.0); %Lymphocytes 42.7 % (21.0-51.0); %Monocytes 6.1 % (0.0-10.0); %Neutrophils 47.2 % (42.0-75.0); Hematocrit 36.8 % (36.0-47.0); Hemoglobin 11.6 g/dL (12.0-16.0); Mean Corpuscular HGB CONC 31.5 g/dL (32.0-36.0); Mean Corpuscular Hemoglobin 27.8 pg (27.0-31.0); Mean Corpuscular Volume 88.2 fL (78.0-98.0); Mean Platelet Volume 9.9 fL (7.4-10.4); Platelet Count 326 10x3/uL (130-400); RBC Distribution Width 15.8 % (11.5-14.5); Red Blood Cell (RBC) Count 4.17 mill/uL (4.20-5.40)
[2024-07-06 01:11] LABS: ALT (SGPT) 16 U/L (8-55); AST (SGOT) 16 U/L (5-34); Albumin 3.6 g/dL (3.5-5.0); Alkaline Phosphatase 96 U/L (40-110); Anion Gap 15 mmol/L (10-20); BUN (Urea Nitrogen) 13 mg/dL (7.0-18.7); Bilirubin, Total 0.2 mg/dL (0.2-1.2); Calc. Creatinine Clearance 0 mL/min (70-130); Calcium 9.2 mg/dL (7.8-10.44); Carbon Dioxide 20 mmol/L (22-29); Chloride 108 mmol/L (98-107); Estimated GFR 104; Glucose 113 mg/dL (70-105); Potassium 3.6 mmol/L (3.5-5.1); Protein, Total 7.6 g/dL (6.0-8.3); Sodium 139 mmol/L (136-145)
[2024-07-06 01:30] LABS: Troponin I Less than 0.010 ng/mL (< 0.028)
[2024-07-06 01:43] LABS: BHCG - Serum Negative (NEGATIVE); Pregs Control Background? CLEAR/WHITE (CLR/WHITE); Pregs Control Bar Appear? YES (CONTROL BAR)
[2024-07-06] MEDS ORDERED: Acetaminophen 500 MG TAB ONE (03:13)
[2024-07-06] MEDS ORDERED: Lorazepam 2 MG/ML VIAL ONE (03:14)
[2024-07-06] MEDS ORDERED: methylPREDNISolone Sod Succ 40 MG VIAL ONE (03:16)
[2024-07-06] MEDS ORDERED: Atenolol 50 MG TAB PO SCH (03:30)
[2024-07-06] MEDS ORDERED: Famotidine/PF 20 mg/2ml Vial ONE (03:39)
[2024-07-06] MEDS ORDERED: diphenhydrAMINE 50 MG/ML VIAL ONE (03:39)
[2024-07-06 03:53] LABS: Free T4 (Free Thyroxine) 0.9 ng/dL (0.70-1.48)
[2024-07-06 04:09] LABS: Thyroid Stimulating Hormone 0.1936 uIU/mL (0.35-4.94)
[2024-07-06 04:20] LABS: Troponin I Less than 0.010 ng/mL (< 0.028)
[2024-07-06] MEDS ORDERED: Iopamidol-370 76% 500 ML MDV (1 ML CHARGE) ONE (10:17)
== END 2024-07-06 07:01 | disposition home or self-care (01) ==
LOC: ERS 00:23
DX: R07.89 Other chest pain (principal); E05.90 Thyrotoxicosis, unspecified without thyrotoxic crisis or storm; I10 Essential (primary) hypertension; Z55.6 Problems related to health literacy; Z79.899 Other long term (current) drug therapy
CPT/HCPCS: 36415; 71045; 71275; 74174; 80053; 83690; 84439; 84443; 84481; 84484; 84703; 85025; 85379; 93005; 96374; 96375; J1200; J2060; J2919; J3490; Q9967

== ENCOUNTER 2024-08-15 15:48 | Emergency (ER) | payer OTHER ==
[2024-08-15] MEDS ORDERED: Ketorolac Tromethamine 30 MG (1 mL) VIAL ONE (17:39)
== END 2024-08-15 18:35 | disposition home or self-care (01) ==
LOC: ERS 15:48
DX: S60.032A Contusion of left middle finger without damage to nail, initial encounter (principal); W22.01XA Walked into wall, initial encounter
CPT/HCPCS: 96372; 99283; J1885